=== PATIENT | female | born 1985 | race Caucasian/White ===

== ENCOUNTER 2017-04-11 19:37 | Emergency (ER) | payer BC ==
[2017-04-11] MEDS ORDERED: Ondansetron INJ* 2 MG/ML VIAL IV ONE (21:17)
[2017-04-11] MEDS ORDERED: Ketorolac INJ* 30 MG/ML 1 ML VIAL IV ONE (21:17)
[2017-04-11] MEDS ORDERED: HYDROmorphone INJ* 1 MG/ML CARPUJECT SYRINGE IV ONE (21:17)
[2017-04-11] MEDS ORDERED: NS 0.9% 1000 ML* 1,000 ML IV ONE (21:17)
[2017-04-11 21:47] LABS: ABS Basophils 0 10^3/ul (0-0.2); ABS Eosinophils 0.1 10^3/ul (0-0.6); ABS Lymphocytes 1.6 10^3/ul (1.0-4.8); ABS Monocytes 0.4 10^3/ul (0-0.8); ABS Neutrophils 8.5 10^3/ul (1.5-7.7); ABS Nucleated RBC 0 10^3/ul; Eosinophil % 0.6 % (0-6); Hematocrit 42 % (35-47); Hemoglobin 14.4 g/dl (12.0-16.0); Mean Corpuscular HGB Conc 35 g/dl (31-36); Mean Corpuscular Hemoglobin 30 pg (27-31); Mean Corpuscular Volume 87 fL (80-97); Mean Platelet Volume 8 um3 (7.4-10.4); Nucleated Red Blood Cells % 0; Platelet Count 258 10^3/ul (150-450); Red Blood Count 4.79 10^6/ul (4.0-5.4); Red Cell Distribution Width 13 % (10.5-15); White Blood Count 10.6 10^3/ul (3.5-10.8)
[2017-04-11 21:59] LABS: EGFR Non-African American 71.3 (>60)
[2017-04-11] MEDS ORDERED: Ondansetron ODT TAB* 4 MG SL PRN (23:26)
[2017-04-12 00:03] VITALS: BP 124/78
--- NOTE | 2017-04-12 00:12 | ED ---
Rakesh Hernandez Nikita, scribed for An Roach MD on 04/11/17 at 2329 . Progress - Progress Note Progress Note: Pt is feeling better. Pt will be seeing her urologist tomorrow for a procedure. Pt will be discharged home. Pt is agreeable with this plan. Take Imodium as needed. Pt will be given Reglan for nausea and vomiting. INSTRUCTED TO RETURN TO EMERGENCY DEPARTMENT FOR ANY NEW OR WORSENING SYMPTOMS. Course/Dx - Diagnoses Provider Diagnoses: Kidney stones The documentation as recorded by the Rakesh horta Nikita accurately reflects the service I personally performed and the decisions made by Doc storey Abdul, MD.
--- NOTE | 2017-04-12 11:05 | ED ---
Mono Hernandez Thomas, scribed for Chano Brasher MD on 04/11/17 at 2123 . Abdominal Pain/Female - HPI Summary HPI Summary: The patient is a 31 year old female presenting to the emergency room complaining of bilateral flank pain. The patient was seen at Dr. Huffman office and had an ultrasound yesterday that showed a large stone on the right. Dr. Watkins plans to put a stent in tomorrow. The ultrasound also showed a 4mm stone on the left. The patient thinks she is passing the 4mm stone on the left because the pain has gotten worse on the left and better on the right. The patient started vomiting today at around 17:00. - History of Current Complaint Chief Complaint: EDUrogenitalProblems Stated Complaint: KIDNEY STONE Time Seen by Provider: 04/11/17 21:10 Hx Obtained From: Patient Onset/Duration: Still Present Timing: Constant Severity Currently: Severe Pain Intensity: 7 Pain Scale Used: 0-10 Numeric Location: Flank - bilateral Radiates: No Alleviating Factor(s): Nothing Associated Signs and Symptoms: Positive: Vomiting Allergies/Adverse Reactions: Allergies Allergy/AdvReac Type Severity Reaction Status Date / Time No Known Allergies Allergy Verified 04/11/17 19:47 PMH/Surg Hx/FS Hx/Imm Hx Previously Healthy: No GI History: Reports: Hx Irritable Bowel - comes and goes- no meds History: Reports: Hx Kidney Infection, Hx Kidney Stones Musculoskeletal History: Reports: Hx Tendonitis - left foot Sensory History: Reports: Hx Contacts or Glasses - both - glasses day of surgery Denies: Hx Hearing Aid Opthamlomology History: Reports: Hx Contacts or Glasses - both - glasses day of surgery Psychiatric History: Reports: Hx Anxiety, Hx Depression - Cancer History Hx Chemotherapy: No - Surgical History Surgery Procedure, Year, and Place: left foot surgery when in high school. kidney stents on right side several times in past and LITHOTRIPSY. wisdom teeth removed Hx Anesthesia Reactions: No Infectious Disease History: No Infectious Disease History: Denies: Traveled Outside the [place] in Last 30 Days - Family History Known Family History: Positive: Other - Patient denies FHx when asked - Social History Alcohol Use: Occasionally Hx Substance Use: No Substance Use Type: Reports: None Hx Tobacco Use: No Smoking Status (MU): Never Smoked Tobacco Review of Systems Negative: Fever Positive: Vomiting Positive: flank pain - bilateral All Other Systems Reviewed And Are Negative: Yes Physical Exam - Summary Physical Exam Summary: Appearance: The patient is well-nourished in no acute distress and in no acute pain. Skin: The skin is warm and dry and skin color reflects adequate perfusion. HEENT: The head is normocephalic and atraumatic. The pupils are equal and reactive. The conjunctivae are clear and without drainage. Nares are patent and without drainage. Mouth reveals moist mucous membranes and the throat is without erythema and exudate. The external ears are intact. The ear canals are patent and without drainage. The tympanic membranes are intact. Neck: the neck is supple with full range of motion and non-tender. There are no carotid bruits. There is no neck vein distension. Respiratory: Chest is non-tender. Lungs are clear to auscultation and breath sounds are symmetrical and equal. Cardiovascular: Heart is regular rate and rhythm. There is no murmur or rub auscultated. There is no peripheral edema and pulses are symmetrical and equal. Abdomen: The abdomen is soft and non-tender. There are normal bowel sounds heard in all four quadrants and there is no organomegaly palpated. Back: She has left CVA tenderness. Musculoskeletal: Extremities are non-tender with full range of motion. There is good capillary refill. There is no peripheral edema or calf tenderness elicited. Neurological: Patient is alert and oriented to person, place and time. The patient has symmetrical motor strength in all four extremities. Cranial nerves are grossly intact. Deep tendon reflexes are symmetrical and equal in all four extremities. Psychiatric: The patient has an appropriate affect and does not exhibit any anxiety or depression. Triage Information Reviewed: Yes Vital Signs On Initial Exam: Initial Vitals Temp Pulse Resp BP Pulse Ox 97.8 F 83 16 126/78 100 04/11/17 19:42 04/11/17 19:42 04/11/17 19:42 04/11/17 19:42 04/11/17 19:42 Vital Signs Reviewed: Yes Diagnostics - Vital Signs Vital Signs Temp Pulse Resp BP Pulse Ox 04/11/17 19:42 97.8 F 83 16 126/78 100 - Laboratory Lab Results: Lab Results 04/11/17 04/11/17 04/11/17 Range/Units 21:30 21:30 21:30 WBC 10.6 (3.5-10.8) 10^3/ul RBC 4.79 (4.0-5.4) 10^6/ul Hgb 14.4 (12.0-16.0) g/dl Hct 42 (35-47) % MCV 87 (80-97) fL MCH 30 (27-31) pg MCHC 35 (31-36) g/dl RDW 13 (10.5-15) % Plt Count 258 (150-450) 10^3/ul MPV 8 (7.4-10.4) um3 Neut % (Auto) 80.2 (38-83) % Lymph % (Auto) 15.0 L (25-47) % [place] % (Auto) 4.0 (1-9) % Eos % (Auto) 0.6 (0-6) % Baso % (Auto) 0.2 (0-2) % Absolute Neuts (auto) 8.5 H (1.5-7.7) 10^3/ul Absolute Lymphs (auto) 1.6 (1.0-4.8) 10^3/ul Absolute Monos (auto) 0.4 (0-0.8) 10^3/ul Absolute Eos (auto) 0.1 (0-0.6) 10^3/ul Absolute Basos (auto) 0 (0-0.2) 10^3/ul Absolute Nucleated RBC 0 10^3/ul Nucleated RBC % 0 Sodium 138 (133-145) mmol/L Potassium 3.5 (3.5-5.0) mmol/L Chloride 103 (101-111) mmol/L Carbon Dioxide 26 (22-32) mmol/L Anion Gap 9 (2-11) mmol/L BUN 13 (6-24) mg/dL Creatinine 0.93 (0.51-0.95) mg/dL Est GFR ( Amer) 91.7 (>60) Est GFR (Non-Af Amer) 71.3 (>60) BUN/Creatinine Ratio 14.0 (8-20) Glucose 92 (70-100) mg/dL Lactic Acid 1.0 (0.5-2.0) mmol/L Calcium 9.9 (8.6-10.3) mg/dL Total Bilirubin 0.40 (0.2-1.0) mg/dL AST 20 (13-39) U/L ALT 22 (7-52) U/L Alkaline Phosphatase 54 (34-104) U/L C-Reactive Protein 23.20 H (< 5.00) mg/L Total Protein 7.7 (6.4-8.9) g/dL Albumin 4.0 (3.2-5.2) g/dL Globulin 3.7 (2-4) g/dL Albumin/Globulin Ratio 1.1 (1-3) Lipase 29 (11.0-82.0) U/L Beta HCG, Quant < 0.60 mIU/mL Result Diagrams: 04/11/17 21:30 04/11/17 21:30 Lab Statement: Any lab studies that have been ordered have been reviewed, and results considered in the medical decision making process. Abdominal Pain Fem Course/Dx - Course Course Of Treatment: Ms. Larsen has a known large stone on the right which Dr. Watkins is planning on stenting tomorrow. She also has a known 4 mm stone on the left. She started with increased pain on the left this afternoon and vomited a couple times. She is on keflex for a UTI. She denies fevers. Here she is nontoxic in appearance and afebrile. She is getting IV NS and pain medications and will go home if she improves to F/U tomorrow with Dr. Watkins or be admitted if her pain can't be controlled. - Diagnoses Provider Diagnoses: Kidney stones Discharge - Discharge Plan Condition: Stable Disposition: HOME Patient Education Materials: Kidney Stones (ED) Referrals: Rodger Watkins MD [Medical Doctor] - 1 Day Additional Instructions: Follow up with Dr. Watkins (urologist) tomorrow. The documentation as recorded by the Mono horta Thomas accurately reflects the service I personally performed and the decisions made by , Chano Brasher MD.
== END 2017-04-12 00:02 | disposition home or self-care (01) ==
LOC: ED 19:37
DX: N20.0 Calculus of kidney (principal); R11.10 Vomiting, unspecified; R10.84 Generalized abdominal pain; Z87.19 Personal history of other diseases of the digestive system
CPT/HCPCS: 36415; 80053; 83605; 83690; 84702; 85025; 86140; 87040; 96374; 96375; 99283; J1170; J1885; J2405

== ENCOUNTER 2017-04-12 14:00 | Day surgery (SDC) | payer BC ==
--- NOTE | 2017-04-12 10:15 | HP ---
HISTORY AND PHYSICAL: DATE OF PLANNED ADMISSION AND SURGERY: 04/12/17 HISTORY OF PRESENT ILLNESS: Ms. Larsen is a 31-year-old white female who is admitted with bilateral renal calculi for cystoscopy, bilateral ureteral stent placement, and possible bilateral ureteroscopies. Ms. Larsen is a known stone former whom I have been following for several years because of bilateral renal calculi. She had required ureteroscopy in the past. She has been maintained on potassium citrate for control of her stone disease. She presented about 3 to 4 weeks ago with symptoms of left flank pain and was noted on renal ultrasound to have bilateral renal calculi. She presented to my office 2 days ago with intermittent episodes of left flank pain. She had a renal ultrasound in the office, which showed a 4- to 5-mm calculus in the proximal left ureter and a 1-cm calculus in the right renal pelvis. A KUB confirmed the presence of a 1-cm calculus in the right renal pelvis and the calculus on the left side was not visualized on the KUB. The patient was scheduled to have a placement of a right ureteral stent. She presented to the emergency room last night with symptoms of left renal colic. She was managed conservatively with pain medications and sent home. She had a urine culture 3 days ago, which grew klebsiella, sensitive to Keflex, and she has been maintained on Keflex for the last 3 days with control of her cystitis symptoms. PAST MEDICAL HISTORY AND SYSTEM REVIEW: She is otherwise in very good health. MEDICATIONS: She is on Cymbalta. She is on oral contraceptives. ALLERGIES: She denies any allergies to medications. PHYSICAL EXAMINATION GENERAL: Pleasant, healthy-looking white female, who is in moderate discomfort because of flank pain. LUNGS: Clear. HEART: Regular and rhythmic. No murmurs. ABDOMEN: Soft. No masses, no tenderness. There is slight bilateral flank tenderness. The rest of the abdominal exam is normal. IMPRESSION: 1. A 1-cm calculus at the right ureteropelvic junction causing intermittent episodes of right flank pain. 2. A 4- to 5-mm calculus in the proximal left ureter with intermittent episodes of left renal colic. PLAN: For cystoscopy and bilateral ureteral stent placement. If either of the calculi is noted to have migrated in the lower half of the ureter, then ureteroscopy will be performed. The patient will require shock wave lithotripsy of the right renal calculus at a later date. [id number]/[facility] #: [id number] DOMINIK
[~2017-04-12 14:00] MED LIST: Buffered Lidocaine 0.9% SYRIN* 5 ML/SYR SYRINGE INTRADERM ONE; Buffered Lidocaine 0.9% SYRIN* 5 ML/SYR SYRINGE ONE; Dexamethasone IV* 4 MG/ML 1 ML (4 MG) IV SLOW PU ONE; Dexamethasone IV* 4 MG/ML 1 ML (4 MG) ONE; Famotidine IV* 10 MG/ML 2 ML (20 mg) IV ONE; Famotidine IV* 10 MG/ML 2 ML (20 mg) ONE; Lidocaine 2% PF * 5 ML VIAL ONE; Propofol* 10 MG/ML 20 ML BTL IV PUSH ONE; cefTRIAXone(*) 1 GM ADVAN/BAG ONE
[2017-04-12] MEDS ORDERED: Midazolam* 1 MG/ML 2 ML VIAL (2 MG) ONE (14:09)
[2017-04-12] MEDS ORDERED: fentaNYL* 50 MCG/ML 2 ML VIAL (100 MCG VIAL) ONE (14:09)
[2017-04-12] MEDS ORDERED: Iohexol 180 (CONTRAST) 10 ML SDV IV ONE (15:51)
[2017-04-12] MEDS ORDERED: Scopolamine 1.5 mg* PATCH TRANSDERM PRN (17:07)
[2017-04-12] MEDS ORDERED: Naloxone* 0.4 MG/ML 1 ML VIAL IV PRN (17:07)
[2017-04-12] MEDS ORDERED: Ondansetron INJ* 2 MG/ML VIAL IV PRN (17:07)
[2017-04-12] MEDS ORDERED: HYDROmorphone INJ* 1 MG/ML CARPUJECT SYRINGE IV PRN (17:07)
[2017-04-12] MEDS ORDERED: oxyCODONE TAB* 5 MG TAB PO PRN (17:07)
[2017-04-12] MEDS ORDERED: fentaNYL* 50 MCG/ML 2 ML VIAL (100 MCG VIAL) IV PRN (17:07)
--- NOTE | 2017-04-12 17:19 | RAD ---
CPT II Codes: 6045F INDICATION: Right ureteral stent placement. 9 seconds of fluoroscopy time was used. Fluoroscopic services provided for referring physician. There is retrograde PolyGram of the right kidney with dilated right renal pelvis. This placement of a right ureteral stent. IMPRESSION: Fluoroscopic services provided for referring physician for right ureteral stent placement.
[2017-04-12 17:44] VITALS: BP 125/81
[2017-04-12] MEDS ORDERED: Ondansetron INJ* 2 MG/ML VIAL ONE (17:45)
[2017-04-12] MEDS ORDERED: Scopolamine 1.5 mg* PATCH ONE (17:45)
--- NOTE | 2017-04-13 00:41 | OP ---
CC: Margret Eric NP * DATE OF OPERATION: 04/12/17 - [facility] DATE OF : 89 SURGEON: Rodger Watkins MD ANESTHESIOLOGIST: Reyna Dawn MD ANESTHESIA: General. PRE-OP DIAGNOSES: 1. Right renal calculus (1 cm). 2. Left ureteral calculus (4 mm). POST-OP DIAGNOSES: 1. Right renal calculus. 2. Distal left ureteral calculus. OPERATIVE PROCEDURE: 1. Cystoscopy. 2. Right retrograde pyelography and placement of a right ureteral stent (6- Malawian). 3. Extraction of calculus of distal left ureter. INDICATION FOR PROCEDURE: Ms. Larsen is a 31-year-old white female who is a known stone former and who has been having recurrent episodes of right and left flank pain. Workup 2 days ago showed a 1 cm calculus in the right renal pelvis and a 4 mm calculus in the proximal left ureter. She had increasing symptoms of left renal colic yesterday and went to the emergency room where she was treated with pain medication and sent home. The patient is here for the above procedures. PATHOLOGY AT CYSTOSCOPY: The bladder mucosa looked normal. The right ureteral orifice looked normal. A ureteral calculus was noted at the level of the left ureteral orifice. At fluoroscopy, a 1 cm radiopaque calculus was noted in the area of the right renal pelvis. Upon right retrograde pyelography, there was mild right hydronephrosis. DESCRIPTION OF PROCEDURE: After successful general anesthesia, the patient was placed in the lithotomy position and was prepped and draped for cystoscopy. Cystoscopy was performed. The bladder was inspected and the above findings were noted. Using fluoroscopy as guidance, a flexible tip guidewire was introduced into the right orifice and positioned in the area of the renal pelvis. An open-ended catheter was then fed on top of the guidewire. Retrograde pyelography was performed demonstrating the above pathology. A size 6-Malawian stent was then placed with the proximal end coiling in the renal pelvis and the distal end coiling inside the bladder. There was good drainage of contrast from the right kidney and no extravasation. Attention was then directed to the left orifice. The calculus was noted at the level of the orifice. Using the stone grasping forceps, the stone was grasped and was gently extracted without crushing it and was sent for stone analysis. There was some edema at the orifice. The orifice was observed and there was good efflux from the left kidney. It was decided not to instrument the orifice further and no retrograde pyelography done, and no stent was placed. The patient tolerated the procedure well and left the operating room in good condition. The plan is to bring the patient back in at a later date for shockwave lithotripsy of the right renal calculus and for stent removal. [id number]/[facility] #: [id number] MTDD
[2017-04-15] MEDS ORDERED: Scopolamine PATCH Remove* 1 NOTE MISC PATCH OFF ONE (17:08)
== END 2017-04-12 18:19 | disposition home or self-care (01) ==
LOC: OR 14:00
PROVIDERS: ATTEND Urology
DX: N20.1 Calculus of ureter (principal); N20.0 Calculus of kidney; Z87.442 Personal history of urinary calculi; F41.8 Other specified anxiety disorders; N39.0 Urinary tract infection, site not specified; K58.9 Irritable bowel syndrome, unspecified
CPT/HCPCS: 74420; 81025; 82365; 88300; A9270-GY; C1876; J0696; J1100; J2250; J2405; J2704; J3010

== ENCOUNTER → 2017-04-23 06:15 | Day surgery (SDC) | payer BC ==
[~2017-04-23 06:15] MED LIST changes: +Iohexol 180 (CONTRAST) 10 ML SDV IV ONE; -Lidocaine 2% PF * 5 ML VIAL ONE; +Metoclopramide IV* 5 MG/ML 2 ML VIAL ONE; +Midazolam* 1 MG/ML 2 ML VIAL (2 MG) ONE; +Naloxone* 0.4 MG/ML 1 ML VIAL IV PRN; +Ondansetron INJ* 2 MG/ML VIAL ONE; -Propofol* 10 MG/ML 20 ML BTL IV PUSH ONE; +Scopolamine 1.5 mg* PATCH ONE; +Scopolamine 1.5 mg* PATCH TRANSDERM SCH; -cefTRIAXone(*) 1 GM ADVAN/BAG ONE; +cefTRIAXone(*) 2 GM ADDV.VIAL IVPB ONE; +fentaNYL* 50 MCG/ML 2 ML VIAL (100 MCG VIAL) ONE
[2017-04-23 06:57] VITALS: BP 124/78
[2017-04-23 07:46] LABS: Urine Appearance Cloudy; Urine Blood 3+ (Negative); Urine Color Amber; Urine Ketones Negative (Negative); Urine Protein 2+(100 mg/dL) (Negative); Urine Specific Gravity 1.019 (1.010-1.030); Urine Urobilinogen Negative (Negative)
--- NOTE | 2017-04-23 11:58 | CONS ---
CONSULTATION REPORT: DATE OF CONSULT: 04/23/17 HISTORY OF PRESENT ILLNESS: Ms. Larsen is a 31-year-old white female, who presented 2 weeks ago with symptoms of right renal colic and was noted to have a 1- cm calculus at the right ureteropelvic junction and a 4- to 5-mm calculus in the left ureter. She had a urine culture on 04/10/17 showing klebsiella, sensitive to cephalosporin. She was placed preoperatively on Keflex and was taken to the operating room on 04/12/17 and underwent placement of a right ureteral stent and extraction of distal left ureteral calculus. Follow up urine culture on 04/17/2017 showed no growth. The patient had finished her antibiotic course. She was admitted today for shock wave lithotripsy of the right renal calculus. For the last 24 hours, she has not been feeling fine, feeling nauseated, and having right flank pain. She did not have any fever or chills. PHYSICAL EXAM: On examination this morning in the operative unit, she looked pale and was nauseated. Her vital signs showed tachycardia but she was afebrile. She had right flank tenderness. LABORATORY DATA: Urinalysis and culture were sent. The urinalysis was positive for blood, esterase, and nitrite. Urine culture was sent. IMPRESSION: With the above findings suggestive of recurrence of her urinary tract infection, we cannot proceed with the planned shock wave lithotripsy because of fear of sepsis. PLAN: 1. Cancel the planned procedure. 2. 2 g of Rocephin IV is given in the preoperative area. 3. Discharge home on Cipro 500 mg twice a day. 4. We will await the result of the culture. If the culture is negative, then will proceed with the shock wave lithotripsy in 2 days. If it is positive, we will have to wait for a full week of antibiotics. 5. Shock wave lithotripsy would not be available for another 2 weeks and the patient has been very uncomfortable from the stent. In that case, we will proceed with ureteroscopy, pyeloscopy, and laser lithotripsy. 6. The above was discussed with Mattie and her mom. All their questions were answered. [id number]/[facility] #: [id number] [facility]NING HOSPITALEllis
== END | disposition home or self-care (01) ==
LOC: OR 06:15
PROVIDERS: ATTEND Urology
DX: N20.0 Calculus of kidney (principal); N39.0 Urinary tract infection, site not specified; R31.29 Other microscopic hematuria; Z53.09 Procedure and treatment not carried out because of other contraindication; R00.0 Tachycardia, unspecified
CPT/HCPCS: 81003; 81015; 81025; 87077; 87086; 87186; A9270-GY; J0696; J1100; J2250; J2405; J2765; J3010

== ENCOUNTER 2017-05-02 07:20 | Day surgery (SDC) | payer BC ==
--- NOTE | 2017-04-25 01:24 | HP ---
HISTORY AND PHYSICAL: DATE OF PLANNED ADMISSION AND SURGERY: 05/02/17 HISTORY OF PRESENT ILLNESS: Ms. Larsen is a 31-year-old white female who is admitted with a right renal calculus for cystoscopy, right ureteroscopy, laser lithotripsy, and right ureteral stent exchange. Ms. Larsen is a known stone former whom I have been following for several years because of bilateral renal calculi. She had required ureteroscopies in the past. She has been maintained on potassium citrate for control of her stone disease. She presented about 6 weeks ago with symptoms suggestive of left renal calculus. She was noted on renal ultrasound to have a 1 cm calculus in the right renal pelvis and a 3-mm to 4-mm calculus in the proximal left ureter. She was observed to allow the passage of the Lt ureteral calculus. On follow up, her Lt flank pain became more bothersome. Her urine culture at that time was positive for Klebsiella, sensitive to Keflex. KUB showed a 1 cm radio-opaque calculus in the Rt renal pelvis. She was started on Keflex, and 3 days later on 04/12/17, she was taken to the operating room where she had placement of a right ureteral stent and extraction of a distal left ureteral calculus. She was kept postoperatively on the Keflex and she did fine. Follow up urine culture showed no growth. She was admitted on 04/22/17 for shock wave lithotripsy of the right renal calculus. She was noted in the PACU to be pale and slightly tachycardic and had right CVA tenderness. She was afebrile. Her urinalysis was positive for infection. The procedure was canceled. The patient was given 2 g of IV Rocephin and she was discharged home on Cipro. The urine culture grew Klebsiella that had the same sensitivity as the previous culture and it was sensitive to Cipro. She has been doing much better. The patient is much improved and her symptoms are resolved. Considering shock wave lithotripsy will not be available for another 2 to 3 weeks, and because of concern that the Rt renal calculus might be infected, the plan is for Rt ureteroscopy and laser litho. PAST MEDICAL HISTORY AND SYSTEM REVIEW: She is in very good health. MEDICATIONS: She is on Cymbalta and on oral contraceptives. ALLERGIES: She denies any allergies to medications. She had GI symptoms when she was on oral Keflex. PHYSICAL EXAMINATION GENERAL: Pleasant and healthy-looking white female. VITAL SIGNS: Blood pressure 120/80. LUNGS: Normal. HEART: Normal. ABDOMEN: She has minimal right CVA tenderness. Abdominal exam is normal. IMPRESSION: 1. Recent urinary tract infection, treated appropriately with Cipro with her last dose the evening before her admission. 2. A 1-cm calculus in the right renal pelvis, status post placement of right ureteral stent. PLAN: Plan is for cystoscopy, right ureteroscopy, laser lithotripsy, and right ureteral stent exchange. I discussed the above plans with Mattie and her mother, and all their questions were answered. [id number]/[facility] #: [id number] MTDD
[~2017-05-02 07:20] MED LIST changes: -Buffered Lidocaine 0.9% SYRIN* 5 ML/SYR SYRINGE ONE; -Dexamethasone IV* 4 MG/ML 1 ML (4 MG) IV SLOW PU ONE; -Dexamethasone IV* 4 MG/ML 1 ML (4 MG) ONE; -Famotidine IV* 10 MG/ML 2 ML (20 mg) IV ONE; -Famotidine IV* 10 MG/ML 2 ML (20 mg) ONE; -Iohexol 180 (CONTRAST) 10 ML SDV IV ONE; -Metoclopramide IV* 5 MG/ML 2 ML VIAL ONE; -Midazolam* 1 MG/ML 2 ML VIAL (2 MG) ONE; -Naloxone* 0.4 MG/ML 1 ML VIAL IV PRN; -Ondansetron INJ* 2 MG/ML VIAL ONE; -Scopolamine 1.5 mg* PATCH ONE; -Scopolamine 1.5 mg* PATCH TRANSDERM SCH; -cefTRIAXone(*) 2 GM ADDV.VIAL IVPB ONE; -fentaNYL* 50 MCG/ML 2 ML VIAL (100 MCG VIAL) ONE
[2017-05-02] MEDS ORDERED: Buffered Lidocaine 0.9% SYRIN* 5 ML/SYR SYRINGE ONE (07:24)
[2017-05-02] MEDS ORDERED: cefTRIAXone(*) 2 GM ADDV.VIAL IVPB ONE (07:24)
[2017-05-02] MEDS ORDERED: Iohexol 180 (CONTRAST) 10 ML SDV IV ONE (08:48)
[2017-05-02] MEDS ORDERED: Scopolamine 1.5 mg* PATCH ONE (09:00)
[2017-05-02] MEDS ORDERED: Propofol* 10 MG/ML 20 ML BTL IV PUSH ONE (09:14)
[2017-05-02] MEDS ORDERED: Ondansetron INJ* 2 MG/ML VIAL ONE (09:14)
[2017-05-02] MEDS ORDERED: fentaNYL* 50 MCG/ML 2 ML VIAL (100 MCG VIAL) ONE ×2 (09:14→11:19)
[2017-05-02] MEDS ORDERED: Dexamethasone IV* 4 MG/ML 1 ML (4 MG) ONE (09:14)
[2017-05-02] MEDS ORDERED: Lidocaine 2% PF * 5 ML VIAL ONE (09:15)
[2017-05-02] MEDS ORDERED: Ketorolac INJ* 30 MG/ML 1 ML VIAL IV PRN (09:35)
[2017-05-02] MEDS ORDERED: Naloxone* 0.4 MG/ML 1 ML VIAL IV PRN (09:35)
[2017-05-02] MEDS ORDERED: oxyCODONE/Acetamin 5/325 MG* TAB PO PRN (09:35)
[2017-05-02] MEDS ORDERED: DiMENhydriNATE IV* 50 MG/ML VIAL IV PUSH PRN (09:35)
[2017-05-02] MEDS ORDERED: Ketorolac INJ* 30 MG/ML 1 ML VIAL ONE (11:19)
[2017-05-02] MEDS ORDERED: DiMENhydriNATE IV* 50 MG/ML VIAL ONE (11:19)
[2017-05-02] MEDS: fentaNYL* 50 MCG/ML 2 ML VIAL (100 MCG VIAL) IV PRN ×2 (11:20→11:50)
--- NOTE | 2017-05-02 11:34 | RAD ---
INDICATION: Urolithiasis. RIGHT retrograde pyelogram, ureteroscopy, stent exchange COMPARISON: September 05, 2015 ultrasound. April 12, 2017 retrograde pyelogram. TECHNIQUE: 34 seconds fluoroscopy. FINDINGS: RIGHT retrograde pyelogram demonstrates mild calyceal blunting. RIGHT ureteral stent placed. IMPRESSION: Procedural fluoroscopy. CPT II Codes: 6045F
[2017-05-02] MEDS ORDERED: Acetaminophen ADULT LIQ* 650 MG/20.3 ML UDC ONE (12:15)
[2017-05-02 13:06] VITALS: BP 115/81
--- NOTE | 2017-05-02 13:33 | RAD ---
Indication: Renal calculus. RIGHT ureteral stent. Comparison: April 11, 2017 Technique: Supine view of the abdomen. REPORT AND IMPRESSION: Unremarkable bowel gas pattern. RIGHT ureteral stent in place. While partially obscured by the 12th rib the previously noted RIGHT upper pole stone appears fragmented compared with the April 11, 2017 exam with the fragments extending over a region measuring up to 1.3 cm. No stone fragments visualized along the course of the RIGHT ureteral stent.
--- NOTE | 2017-05-03 13:24 | OP ---
CC: Margret Eric NP * DATE OF OPERATION: 05/02/17 - [facility] DATE OF : 89 SURGEON: Rodger Watkins MD PRE-OP DIAGNOSES: 1. Right renal calculus (1 cm). 2. Status post placement right ureteral stent. POST-OP DIAGNOSES: 1. Right renal calculus (1 cm). 2. Status post placement right ureteral stent. OPERATIVE PROCEDURE: 1. Cystoscopy. 2. Right ureteroscopy and pyeloscopy. 3. Laser lithotripsy of right renal calculus. 4. Right retrograde pyelography and right ureteral stent exchange (6-Tajik). INDICATION FOR PROCEDURE: Ms. Larsen is a 31-year-old white female who presented about two weeks ago with symptoms of renal colic and was noted to have a 1-cm calculus at the right ureteropelvic junction. She had urgent placement of right ureteral stent. She was scheduled to undergo shockwave lithotripsy a week later; however, she was noted to have recurrent urinary tract infection and the procedure was canceled and the patient was started on oral antibiotics with resolution of her infection. Because of that history and the slight concern that the stone might be infected , it was decided not to perform a shock-wave lithotripsy, but to bring her in for the above procedure. PATHOLOGY AT FLUOROSCOPY: The right ureteral stent was noted in good position. The right renal calculus was noted in a mid pole calyx of the right kidney. Upon right ureteroscopy, the ureter looked normal. No calculus was seen in the renal pelvis. A grayish calculus measuring about 1 cm was noted in a mid pole calyx. DESCRIPTION OF PROCEDURE: After successful general anesthesia, the patient was placed in the lithotomy position and was prepped and draped for a cystoscopy. Cystoscopy was performed. The right ureteral stent was removed over a guidewire. A 6.5 semirigid ureteroscope was then introduced into the right ureter. The scope was passed without difficulty all the way into the area of the renal pelvis. No calculus was identified in the pelvis. The ureteroscope was then removed. A 10-12 Tajik access sheath was fed on top of the guidewire and positioned in the proximal right ureter. The guidewire was removed, keeping the acces sheath in place. A flexible ureteroscope was then introduced through the access sheath and passed without difficulty inside the renal pelvis. The calices were inspected and the calculus was identified in a mid pole calyx. Using the tipless basket, the stone was basketed and brought down into a dependent position in the renal pelvis. A size 200 micron laser was then introduced through the port of the ureteroscope. The stone was then broken into multiple pieces. The stone then migrated back into the mid pole calyx and it was followed there and additional lasering was performed. The stone fragmented into multiple pieces. The fragments were felt to be too small to be extracted and it was decided to leave them in the mid pole calyx and in the renal pelvis. The ureteroscope was then removed. The access sheath was then removed over a guidewire. Retrograde pyelography was performed showing no evidence of any extravasation. A size 7- Tajik stent was then placed. The patient tolerated the procedure well and left the operating room in good condition. The plan is to leave the stent in about two weeks. It will be removed in the office, and I expect the stone fragments to drop spontaneously. [id number]/[facility] #: [id number] DOMINIK
== END 2017-05-02 12:40 | disposition home or self-care (01) ==
LOC: OR 07:20
PROVIDERS: ATTEND Urology
DX: N20.0 Calculus of kidney (principal); Z87.440 Personal history of urinary (tract) infections; F41.8 Other specified anxiety disorders; K58.9 Irritable bowel syndrome, unspecified
CPT/HCPCS: 74018; 74420; 81025; 82365; 88300; A9270-GY; C1876; J0696; J1100; J1240; J1885; J2405; J2704; J3010

== ENCOUNTER 2017-11-09 18:15 | Emergency (ER) | payer BC ==
[2017-11-09 18:55] VITALS: BP 109/75
[2017-11-09] MEDS ORDERED: Ondansetron ODT TAB* 4 MG PO ONE (19:01)
--- NOTE | 2017-11-09 19:27 | UC ---
UC General HPI - HPI Summary HPI Summary: 32 yo female c/o progressive nausea / vomiting approx last 4 days. Today started diarrhea brown green. Denies urinary symptoms except for less urine urine quantity. No fever / chills. No abd pain, no rash. No sob / cp / palpitations. 9 wks . - History of Current Complaint Chief Complaint: UCGI Stated Complaint: VOMITING,DIARRHEA,PREG Time Seen by Provider: 11/09/17 18:52 Hx Obtained From: Patient Hx Last Menstrual Period: 09/09/17 Pain Intensity: 3 - Allergy/Home Medications Allergies/Adverse Reactions: Allergies Allergy/AdvReac Type Severity Reaction Status Date / Time Sulfa (Sulfonamide Allergy Unknown Verified 11/09/17 18:56 Antibiotics) Reaction Details PMH/Surg Hx/FS Hx/Imm Hx Previously Healthy: Yes - Surgical History Surgical History: Yes Surgery Procedure, Year, and Place: left foot surgery when in high school. kidney stents on right side several times in past and LITHOTRIPSY. wisdom teeth removed - Family History Known Family History: Positive: None, Other - Patient denies FHx when asked - Social History Alcohol Use: None Substance Use Type: None Smoking Status (MU): Never Smoked Tobacco Review of Systems Constitutional: Fatigue Skin: Negative Eyes: Negative ENT: Negative Respiratory: Negative Cardiovascular: Negative Gastrointestinal: Other - see hpi Genitourinary: Other - see hpi Motor: Negative Neurovascular: Negative Musculoskeletal: Negative Neurological: Negative Psychological: Negative Is Patient Immunocompromised?: No All Other Systems Reviewed And Are Negative: Yes Physical Exam Triage Information Reviewed: Yes Appearance: Well-Nourished - looks tired, pale. NAD. Vital Signs: Initial Vital Signs Temp 98.3 F 11/09/17 18:48 Pulse 102 11/09/17 18:48 Resp 16 11/09/17 18:48 BP 109/75 11/09/17 18:48 Pulse Ox 100 11/09/17 18:48 Vital Signs Reviewed: Yes Eye Exam: Normal - grossly normal ENT Exam: Other - MM a little dry. Oroph o/w normal. Neck exam: Normal Neck: Positive: Supple Respiratory Exam: Normal Respiratory: Positive: Chest non-tender, Lungs clear, Normal breath sounds, No respiratory distress Cardiovascular Exam: Other - HR 110's, correlates with L radial pulse Abdominal Exam: Other - hyperactive bs Abdomen Description: Positive: Nontender Musculoskeletal Exam: Normal - gait slow, steady. Moves x 4 ext's Neurological Exam: Normal - grossly nonfocal Psychological Exam: Normal - conversing easily and appropriately Skin Exam: Normal - nondiaphoretic. no visible or reported rash. Course/Dx - Course Course Of Treatment: Urine dip noted, + leuk no ketones. + ucg. Actively retching upon arrival, as such one ondansetron 4mg sl (d/w pt). Recommend ED eval / tx. Ms. Gatica and carefully considered and agree. Declined EMS. Questions as posed answered to the best of my ability. D/w Dr Reyes, ED at time of pt departure. - Differential Dx - Multi-Symptom Provider Diagnoses: Volume dehydration. Hyperemesis gravidum. Discharge - Sign-Out/Discharge Documenting (check all that apply): Patient Departure - Discharge Plan Condition: Fair Disposition: HOME-RECOMMEND TO ED Patient Education Materials: Hyperemesis Gravidarum (ED) Referrals: Kiki Chavez NP [Primary Care Provider] - Pritesh Black MD [Medical Doctor] - Additional Instructions: Go directly to the Emergency Department. Call 911 for problems en route. - Billing Disposition and Condition Condition: FAIR Disposition: Home-Recommend to ED
== END 2017-11-09 19:30 | disposition home health service (06) ==
LOC: UCEAST 18:15
DX: O21.0 Mild hyperemesis gravidarum (principal); E86.9 Volume depletion, unspecified; Z3A.09 9 weeks gestation of pregnancy; Z88.2 Allergy status to sulfonamides
CPT/HCPCS: 81003; 84702; 87086; 99202; A9270-GY; G0463

== ENCOUNTER 2017-11-09 20:01 | Emergency (ER) | payer BC ==
[2017-11-09 21:38] LABS: ABS Basophils 0 10^3/ul (0-0.2); ABS Eosinophils 0.2 10^3/ul (0-0.6); ABS Lymphocytes 2.6 10^3/ul (1.0-4.8); ABS Monocytes 0.7 10^3/ul (0-0.8); ABS Neutrophils 7.1 10^3/ul (1.5-7.7); ABS Nucleated RBC 0 10^3/ul; Eosinophil % 1.5 % (0-6); Hematocrit 42 % (35-47); Hemoglobin 14.5 g/dl (12.0-16.0); Lymphocyte % 24.6 % (25-47); Mean Corpuscular HGB Conc 35 g/dl (31-36); Mean Corpuscular Hemoglobin 30 pg (27-31); Mean Corpuscular Volume 85 fL (80-97); Mean Platelet Volume 7.9 um3 (7.4-10.4); Nucleated Red Blood Cells % 0.1; Platelet Count 270 10^3/ul (150-450); Red Cell Distribution Width 13 % (10.5-15); White Blood Count 10.6 10^3/ul (3.5-10.8)
[2017-11-09 21:55] LABS: EGFR Non-African American 79.6 (>60)
[2017-11-09] MEDS ORDERED: NS 0.9% 1000 ML* 1,000 ML IV ONE (22:37)
[2017-11-09] MEDS ORDERED: Metoclopramide IV* 5 MG/ML 2 ML VIAL IV SLOW PU ONE (22:37)
[2017-11-09 22:56] LABS: Urine Appearance Cloudy; Urine Blood 1+ (Negative); Urine Color Yellow; Urine Ketones 1+ (Negative); Urine Protein Negative (Negative); Urine Red Blood Cell 2+(6-10/hpf) (Absent); Urine Specific Gravity 1.023 (1.010-1.030); Urine Urobilinogen Negative (Negative); Urine White Blood Cell 2+(11-20/hpf) (Absent)
[2017-11-09] MEDS ORDERED: Nitrofurantoin Macrocrystals* 100 MG CAP PO ONE (23:05)
--- NOTE | 2017-11-10 00:11 | ED ---
GI/ HPI - HPI Summary HPI Summary: 32-year-old female presents with nausea vomiting diarrhea for the past couple days. She states she is 9 weeks . Last menstrual period was in August. Denies any abdominal pain. No vaginal discharge or bleeding. No pain with urination. no urgency or frequency. She takes she states she took some medication for morning sickness without relief. Patient has had morning sickness but did not have diarrhea in the past with such. No one else is sick. Denying eating anything different. No fevers. No constipation. - History of Current Complaint Chief Complaint: EDAbdPain Time Seen by Provider: 11/09/17 22:24 Stated Complaint: NAUSEA/VOMITING/DIARRHEA/8 WKS PREG Hx Last Menstrual Period: 09/09/17 Pain Intensity: 0 - Allergy/Home Medications Allergies/Adverse Reactions: Allergies Allergy/AdvReac Type Severity Reaction Status Date / Time Sulfa (Sulfonamide Allergy Unknown Verified 11/09/17 20:08 Antibiotics) Reaction Details PMH/Surg Hx/FS Hx/Imm Hx Endocrine/Hematology History: Denies: Hx Anticoagulant Therapy Cardiovascular History: Denies: Hx Myocardial Infarction GI History: Reports: Hx Irritable Bowel - comes and goes- no meds History: Reports: Hx Kidney Infection, Hx Kidney Stones Musculoskeletal History: Reports: Hx Tendonitis - left foot Sensory History: Reports: Hx Contacts or Glasses - both - glasses day of surgery Denies: Hx Hearing Aid Opthamlomology History: Reports: Hx Contacts or Glasses - both - glasses day of surgery Psychiatric History: Reports: Hx Anxiety, Hx Depression - Cancer History Hx Chemotherapy: No - Surgical History Surgery Procedure, Year, and Place: left foot surgery when in high school. kidney stents on right side several times in past and LITHOTRIPSY. wisdom teeth removed Hx Anesthesia Reactions: No Infectious Disease History: No Infectious Disease History: Denies: Traveled Outside the [place] in Last 30 Days - Family History Known Family History: Positive: None, Other - Patient denies FHx when asked - Social History Alcohol Use: None Hx Substance Use: No Substance Use Type: Reports: None Hx Tobacco Use: No Smoking Status (MU): Never Smoked Tobacco Review of Systems Negative: Fever Negative: Chest Pain Negative: Shortness Of Breath Positive: Vomiting, Diarrhea, Nausea. Negative: Abdominal Pain All Other Systems Reviewed And Are Negative: Yes Physical Exam Triage Information Reviewed: Yes Vital Signs On Initial Exam: Initial Vitals Temp Pulse Resp BP Pulse Ox 98.0 F 91 16 117/70 99 11/09/17 20:05 11/09/17 20:05 11/09/17 20:05 11/09/17 20:05 11/09/17 20:05 Vital Signs Reviewed: Yes Appearance: Positive: Well-Appearing Skin: Positive: Warm, Dry Head/Face: Positive: Normal Head/Face Inspection Eyes: Positive: Normal, Conjunctiva Clear ENT: Positive: Pharynx normal Respiratory/Lung Sounds: Positive: Clear to Auscultation, Breath Sounds Present Cardiovascular: Positive: Normal, RRR Abdomen Description: Positive: Nontender, Soft Bowel Sounds: Positive: Present Musculoskeletal: Positive: Normal Neurological: Positive: Normal Psychiatric: Positive: Normal Diagnostics - Vital Signs Vital Signs Temp Pulse Resp BP Pulse Ox 11/09/17 23:38 98.8 F 14 11/09/17 20:05 98.0 F 91 16 117/70 99 - Laboratory Lab Results: Lab Results 11/09/17 11/09/17 11/09/17 Range/Units 21:29 21:29 22:43 WBC 10.6 (3.5-10.8) 10^3/ul RBC 4.90 (4.00-5.40) 10^6/ul Hgb 14.5 (12.0-16.0) g/dl Hct 42 (35-47) % MCV 85 (80-97) fL MCH 30 (27-31) pg MCHC 35 (31-36) g/dl RDW 13 (10.5-15) % Plt Count 270 (150-450) 10^3/ul MPV 7.9 (7.4-10.4) um3 Neut % (Auto) 66.9 (38-83) % Lymph % (Auto) 24.6 L (25-47) % [place] % (Auto) 6.7 (0-7) % Eos % (Auto) 1.5 (0-6) % Baso % (Auto) 0.3 (0-2) % Absolute Neuts (auto) 7.1 (1.5-7.7) 10^3/ul Absolute Lymphs (auto) 2.6 (1.0-4.8) 10^3/ul Absolute Monos (auto) 0.7 (0-0.8) 10^3/ul Absolute Eos (auto) 0.2 (0-0.6) 10^3/ul Absolute Basos (auto) 0 (0-0.2) 10^3/ul Absolute Nucleated RBC 0 10^3/ul Nucleated RBC % 0.1 Sodium 136 (135-145) mmol/L Potassium 3.6 (3.5-5.0) mmol/L Chloride 102 (101-111) mmol/L Carbon Dioxide 25 (22-32) mmol/L Anion Gap 9 (2-11) mmol/L BUN 21 (6-24) mg/dL Creatinine 0.84 (0.51-0.95) mg/dL Est GFR ( Amer) 96.3 (>60) Est GFR (Non-Af Amer) 79.6 (>60) BUN/Creatinine Ratio 25.0 H (8-20) Glucose 85 (70-100) mg/dL Calcium 9.8 (8.6-10.3) mg/dL Total Bilirubin 0.40 (0.2-1.0) mg/dL AST 18 (13-39) U/L ALT 23 (7-52) U/L Alkaline Phosphatase 68 (34-104) U/L C-Reactive Protein 25.75 H (<8.01) mg/L Total Protein 7.4 (6.4-8.9) g/dL Albumin 4.1 (3.2-5.2) g/dL Globulin 3.3 (2-4) g/dL Albumin/Globulin Ratio 1.2 (1-3) Lipase 47 (11.0-82.0) U/L Beta HCG, Quant > 611829.00 mIU/mL Urine Color Yellow Urine Appearance Cloudy Urine pH 5.0 (5-9) Ur Specific [place] 1.023 (1.010-1.030) Urine Protein Negative (Negative) Urine Ketones 1+ A (Negative) Urine Blood 1+ A (Negative) Urine Nitrate Negative (Negative) Urine Bilirubin Negative (Negative) Urine Urobilinogen Negative (Negative) Ur Leukocyte Esterase 3+ A (Negative) Urine WBC (Auto) 2+(11-20/hpf) A (Absent) Urine RBC (Auto) 2+(6-10/hpf) A (Absent) Ur Squamous Epith Cells Present A (Absent) Urine Bacteria 1+ A (Absent) Urine Glucose Negative (Negative) Result Diagrams: 11/09/17 21:29 11/09/17 21:29 Lab Statement: Any lab studies that have been ordered have been reviewed, and results considered in the medical decision making process. GIGU Course/Dx - Course Course Of Treatment: 32-year-old female presents with nausea vomiting diarrhea for the past couple days. She states she is 9 weeks . Last menstrual period was in August. Denies any abdominal pain. No vaginal discharge or bleeding. No pain with urination. no urgency or frequency. She takes she states she took some medication for morning sickness without relief. Patient has had morning sickness but did not have diarrhea in the past with such. No one else is sick. Denying eating anything different. No fevers. No constipation. On exam nontender abdomen. Labs within normal limits. Gave fluids and Reglan feeling better. Urine shows UTI Will treat with macrobid. Patient understands this plan. - Diagnoses Differential Diagnoses - Female: Gastroenteritis (Viral), Gastroenteritis ( Bacterial), Urinary Tract Infection Provider Diagnoses: Nausea vomiting and diarrhea, UTI (urinary tract infection) Discharge - Sign-Out/Discharge Documenting (check all that apply): Patient Departure - Discharge Plan Condition: Good Disposition: HOME Prescriptions: Metoclopramide TAB* [Reglan TAB*] 10 mg PO Q6H #20 tab Nitrofurantoin Monohyd/M-Cryst [Macrobid 100 mg Capsule] 100 mg PO BID #13 cap Patient Education Materials: Acute Nausea and Vomiting (ED), Urinary Tract Infection in (ED) Referrals: Kiki Chavez MAINTENANCE PLUMBER [Primary Care Provider] - Additional Instructions: take reglan every 6 hours for nausea Take tyenlol for pain every 6 hours Take Macrobid twice a day for 7days, first dose given in ED drink plenty of fluids When able to eat follow BRAT diet: Bananas, rice, applesauce, toast Follow up with primary in 7 days Return to ED if develop fever, flank pain, or any new or worsening symptoms - Billing Disposition and Condition Condition: GOOD Disposition: Home
[2017-11-10 00:33] VITALS: BP 123/76
== END 2017-11-10 00:31 | disposition home or self-care (01) ==
LOC: ED 20:01
DX: O23.41 Unspecified infection of urinary tract in pregnancy, first trimester (principal); O21.9 Vomiting of pregnancy, unspecified; R19.7 Diarrhea, unspecified; Z3A.09 9 weeks gestation of pregnancy; Z88.2 Allergy status to sulfonamides
CPT/HCPCS: 36415; 80053; 81003; 81015; 83690; 84702; 85025; 86140; 96374; 99283; A9270-GY; J2765

== ENCOUNTER 2018-06-13 18:49 | Inpatient (IN) | payer BC ==
[2018-06-13] MEDS ORDERED: Penicillin G Potassium IV* 5,000,000 UNITS in NS 0.9% 100 ML* 100 ML IVPB ONE (19:09)
[2018-06-13] MEDS ORDERED: Lactated Ringers 1000 ML Bag* 1,000 ML IV ONE (19:09)
[2018-06-13 19:33] LABS: ABS Basophils 0 10^3/ul (0-0.2); ABS Eosinophils 0.2 10^3/ul (0-0.6); ABS Lymphocytes 1.5 10^3/ul (1.0-4.8); ABS Monocytes 0.4 10^3/ul (0-0.8); ABS Neutrophils 7.2 10^3/ul (1.5-7.7); ABS Nucleated RBC 0 10^3/ul; Hematocrit 30 % (33-41); Hemoglobin 9.9 g/dL (12.0-16.0); Lymphocyte % 15.8 %; Mean Corpuscular HGB Conc 33 g/dL (31-36); Mean Corpuscular Hemoglobin 25 pg (27-31); Mean Corpuscular Volume 76 fL (80-97); Mean Platelet Volume 8.9 fL (7.4-10.4); Nucleated Red Blood Cells % 0; Platelet Count 182 10^3/uL (150-450); Red Blood Count 3.95 10^6 /uL (3.70-4.87); Red Cell Distribution Width 17 % (10.5-15); White Blood Count 9.3 10^3/uL (3.5-10.8)
[2018-06-13 19:49] LABS: Albumin 3.5 g/dL (3.2-5.2); Albumin/Globulin Ratio 1.3 (1-3); BUN/Creatinine Ratio 14.7 (8-20); Calcium 8.8 mg/dL (8.6-10.3); EGFR African American 109.8 (>60); EGFR Non-African American 90.7 (>60); Globulin 2.8 g/dL (2-4); Potassium 3.6 mmol/L (3.5-5.0); Total Bilirubin 0.4 mg/dL (0.2-1.0); Total Protein 6.3 g/dL (6.4-8.9); Uric Acid 5.5 mg/dL (2.3-6.6)
--- NOTE | 2018-06-13 20:04 | HP ---
General Information - Reason for Visit contractions every 4 min for past 2 hr - General Information Maternal Age: 32 Grav: 1 Para: 0 SAB: 0 IEA: 0 Estimated Due Date: 06/16/18 Determined By: LMP Gestational Age in Weeks/Days: 39 w 5 d Maternal Blood Type and Rh: A Positive - Results this Serology/RPR Result: Non-Reactive Rubella Result: Immune HBsAg Result: Negative HIV Result: Negative GBS Culture Result: Positive Past Medical History Past Medical History Comment: Depression/anxiety Kidney Stones Past Surgical History Comment: L bunionectomy age 17 Lithotrypsy, age 23, age 30 Pertinent Family History: Non-Contributory - Antepartal Records Antepartal Records: Reviewed, Uncomplicated Review of Systems Constitutional: Uncomfortable CV Complaint: No Respiratory: Shortness of Breath: No Gastrointestinal: Vomiting, Soft Stool Genitourinary: No Leaking Fluid Musculoskeletal: Contractions Neurological: No Headache, No Visual Changes Movement: Normal Exam Allergies/Adverse Reactions: Allergies Sulfa (Sulfonamide Antibiotics) Allergy (Verified 11/09/17 20:08) Unknown Reaction Details Lab Values - Entire Visit: Laboratory Tests 06/13/18 06/13/18 06/13/18 19:26 19:26 19:26 WBC 9.3 RBC 3.95 Hgb 9.9 L Hct 30 L MCV 76 L MCH 25 L MCHC 33 RDW 17 H Plt Count 182 MPV 8.9 Neut % (Auto) 77.3 Lymph % (Auto) 15.8 [place] % (Auto) 4.6 Eos % (Auto) 2.0 Baso % (Auto) 0.3 Absolute Neuts (auto) 7.2 Absolute Lymphs (auto) 1.5 Absolute Monos (auto) 0.4 Absolute Eos (auto) 0.2 Absolute Basos (auto) 0 Absolute Nucleated RBC 0 Nucleated RBC % 0 Sodium 138 Potassium 3.6 Chloride 107 Carbon Dioxide 23 Anion Gap 8 BUN 11 Creatinine 0.75 Est GFR ( Amer) 109.8 Est GFR (Non-Af Amer) 90.7 BUN/Creatinine Ratio 14.7 Glucose 90 Uric Acid 5.5 Calcium 8.8 Total Bilirubin 0.40 AST 18 ALT 12 Alkaline Phosphatase 209 H Total Protein 6.3 L Albumin 3.5 Globulin 2.8 Albumin/Globulin Ratio 1.3 Blood Type A Positive - Measurements Height: 5 ft Weight: 153 lb Weight in lbs: 153.932419 Body Mass Index (BMI): 29.9 Pre- Weight: 125 lb Weight Gained This : 28 lbs and 0 ozs - Exam Breast: - - soft, no masses Extremities: Edema Heart: Normal Rhythm/Heart Sounds HEENT: No Significant Findings Lungs: Clear Bilaterally Reflexes: DTR 2+ Thyroid: No Thyromegaly - Abdominal Exam Abdomen Exam: Non-Tender - Ultrasound/Biophysical Profile Ultrasound Status: Not Done Targeted Exam Findings Estimated Weight: 6.5 lbs Cervical Exam: 7cm Effacement: 100% Station: 0 Presenting Part: Vertex Membrane Status: Bulging EFM Findings - External Monitor Findings Baseline Heart Rate: 145 External Monitor Findings: Accelerations Present, No Pattern of Variable or Late Decelerations, Variability Moderate, Baseline Stable External Monitor Findings Comment: category 1 Contractions: Regular, Strong, 45-90 Seconds Contraction Frequency: every 2-4 Assessment/Plan - Assessment active labor - Obstetrical Risk Factors Obstetrical Risk Factors: GBS Positive, Gestational Hypertension - Plan Plan: Admit - Anticipate Vaginal Delivery - Date/Time of Admission Date of Admission: 06/13/18 Time of Admission: 19:10
--- NOTE | 2018-06-13 20:12 | PN ---
Progress Note - Progress Note Date of Service: 06/13/18 Note: feeling pressure Cervix: 9cm/100% AROM, mec stained fluid PCN in Will await full dilation, urge to push
[2018-06-13] MEDS ORDERED: Ondansetron INJ* 2 MG/ML VIAL ONE (20:28)
[2018-06-13] MEDS ORDERED: Ondansetron INJ* 2 MG/ML VIAL IV ONE (20:54)
--- NOTE | 2018-06-13 20:54 | PROCNOTE ---
[facility] OB: Delivery Note - Delivery A Date of : 06/13/18 Time of : 19:35 [place] Sex: Female Score 1 Minute: 9 Score 5 Minutes: 10 Gestational Age in Weeks and Days at Delivery: 39 Weeks and 4 Days Delivery Method: Spontaneous Vaginal Labor: Spontaneous Did Patient attempt ?: N/A, No Previous Amniotic Fluid: Meconium Estimated Blood Loss: 300 Anesthesia/Analgesia: CEI for Labor Anesthesia Comment: Dr. Germain Delivered By: Anjelica Murphy - Nursery Level of Nursery: Regular/Bedside - Perineum Perineal Injury: Perineal Laceration, 1st Degree Perineal Injury Comment: 3-0 ccg Perineal Repair: By Delivering Practioner - Events Delivery Events of Note: Pitocin During Labor - Additional Delivery Notes Additional Delivery Notes: Fully dilated at 1930, pushed 5 min SVB LFC, OA over 1st deg perineal laceration. Infant pink with stimulation. Placenta Howe. Uterine atony controlled with massage, IV with pitocin, Cytotec 800mcg pr. EBL 300cc.
[2018-06-13] MEDS ORDERED: Oxytocin in LR* 20 UNITS/1,000 ML BAG IVPB ONE ×2 (21:14→21:17)
--- NOTE | 2018-06-13 21:30 | PN ---
Progress Note - Progress Note Date of Service: 06/13/18 Note: pushing for 1hr, tiring quickly. FHT dropping with contractions. Good recovery. Dr. Murillo contacted, coming in to evaluate.
[2018-06-13] MEDS ORDERED: Terbutaline INJ* 1 MG/ML VIAL ONE (21:34)
[2018-06-13] MEDS ORDERED: Terbutaline INJ* 1 MG/ML VIAL SUBCUT ONE (21:44)
--- NOTE | 2018-06-13 21:48 | PN ---
Progress Note - Progress Note Date of Service: 06/13/18 Note: bradycardia to 50s. O2 on, position changes. Internal lead on. Terbutaline .25mg given. FHT now in 140s with mod. variability. Discussed with pt/family possible need for vacuum or CS delivery
[2018-06-13] MEDS ORDERED: Oxytocin in LR* 20 UNITS/1,000 ML BAG IVPB SCH (22:00)
--- NOTE | 2018-06-13 22:08 | PN ---
Progress Note - Progress Note Date of Service: 06/13/18 Note: Called to see pt being managed by sand control worker service. 2nd stage for about 90 min and FHT noted to have deep deceleration for several minutes to 60s during pushing over the past 30 min. Terbutaline given, ctx decreased, and FHR recovered well. Now with moderate variability in 150s, no decels. On exam, C/C/+1 with head asynclitic to patient's left. Considering recent concerning FHT with ctx, I recommended section, and pt agrees. We discussed delivery at length. We reviewed the risks including hemorrhage, transfusion, infection, organ injury , anesthesia complications, DVT, and even . All questions were discussed and consent signed.
[2018-06-13] MEDS ORDERED: Sodium Citrate/Citric Acid* 15 ML UDC ONE (22:11)
[2018-06-13] MEDS ORDERED: ceFOXitin 2 GM IVPREMIX* 2 GM/50 ML BAG IVPB ONE (22:11)
[2018-06-13] MEDS ORDERED: ceFOXitin 2 GM IVPREMIX* 2 GM/50 ML BAG ONE (22:11)
[2018-06-13] MEDS ORDERED: OXYTOCIN* 10 UNITS/ML 1 ML VIAL ONE (22:12)
[2018-06-13] MEDS ORDERED: Phenylephrine 40 MCG/ML SYRINGE ONE (22:12)
[2018-06-13] MEDS ORDERED: Lidocaine 2% PF * 5 ML VIAL ONE (22:13)
[2018-06-13] MEDS ORDERED: Bupivacaine-MPF SPINAL* 7.5 MG/ML - 2ML AMP ONE (22:13)
[2018-06-13] MEDS ORDERED: Morphine PF AMP (0.5MG/ML)* 5 MG/10 ML AMP ONE (22:14)
[2018-06-13] MEDS ORDERED: fentaNYL* 50 MCG/ML 2 ML VIAL (100 MCG VIAL) IV PRN (22:52)
[2018-06-13] MEDS ORDERED: Naloxone* 0.4 MG/ML 1 ML VIAL IV PRN ×2 (22:52→22:55)
[2018-06-13] MEDS ORDERED: Ondansetron INJ* 2 MG/ML VIAL IV PRN ×2 (22:52→22:55)
[2018-06-13] MEDS ORDERED: diPHENhydraMINE IV* 50 MG/ML 1 ml VIAL (BENADRYL) IV PRN (22:55)
[2018-06-13] MEDS ORDERED: Nalbuphine* 10 MG/ML 1 ML VIAL IV PRN (22:55)
[2018-06-13] MEDS ORDERED: oxyCODONE/Acetamin 5/325 MG* TAB PO PRN ×2 (22:55)
[2018-06-13] MEDS ORDERED: Ketorolac INJ* 30 MG/ML 1 ML VIAL IV PRN (22:55)
[2018-06-13] MEDS ORDERED: Penicillin G Potassium IV* 2,500,000 UNITS in NS 0.9% 100 ML* 100 ML IVPB SCH (23:30)
[2018-06-13] MEDS ORDERED: Witch Hazel PAD* JAR TOPICAL PRN (23:32)
[2018-06-13] MEDS ORDERED: Lactated Ringers 1000 ML Bag* 1,000 ML IV SCH (23:45)
--- NOTE | 2018-06-14 00:38 | OP ---
DATE OF OPERATION: 06/13/18 - ROOM #117 DATE OF : 89 SURGEON: Yael Murillo MD INSPECTOR PRECISION ASSEMBLY: Anjelica Murphy CNM ANESTHESIOLOGIST: Dr. Beard. ANESTHESIA: Spinal. PRE-OP DIAGNOSIS: A 39 plus 4 weeks gestation with persistent category II heart tracing. POST-OP DIAGNOSIS: A 39 plus 4 weeks gestation with persistent category II heart tracing. OPERATIVE PROCEDURE: Primary low-transverse section. ESTIMATED BLOOD LOSS: 700 cc. URINE OUTPUT: 100 cc. IV FLUIDS: 1150 cc lactated Ringer's. MATERIALS TO LAB: Cord blood and cord gases. INDICATIONS: This patient is a 32-year-old 1, para 0, who presented at 39 plus 4 weeks gestation, in active labor. The patient progressed well on labor, but then after about an hour of pushing the heart tracing was noted to have some persistent variable decelerations that reached as low as 60s. These initially had good recovery, but then there was a fairly prolonged deceleration. At that time, terbutaline was administered with good recovery of the heart tracing as the contractions decreased. On examination, the cervix was fully dilated, but the head was only at about 0 to +1 station. The head was also felt to be somewhat asynclitic. Considering the examination and the concerning heart tracing, the decision was made to proceed with a section. She was extensively counseled and consent was signed. FINDINGS: Normal-appearing uterus, fallopian tubes, and ovaries. Delivery was productive of a male weighing 6 pounds 14 ounces with Apgars of 7 and 9. TIME OF DELIVERY: 2243. Of note there was thick meconium present on entry into the uterus. No nuchal cord was found. COMPLICATIONS: None. DESCRIPTION OF PROCEDURE: The risks, benefits, and alternatives were described to the patient and informed consent was obtained. The patient was taken to the operating room with IV running where spinal anesthesia was induced and found to be adequate. The patient was prepped and draped in the normal sterile fashion in the dorsal supine position with leftward tilt. A Pfannenstiel skin incision was made with a scalpel and this was carried down to the underlying fascia sharply. The fascia was then scored in the midline with the scalpel. The incision was extended using Cummins scissors. The rectus muscles were dissected off the rectus fascia using blunt and sharp dissection. The rectus muscles were in the midline bluntly. The peritoneum was also entered bluntly. A bladder blade was placed. A bladder flap was created sharply using Metzenbaum scissors. A low transverse uterine incision was made with the scalpel. This was carried down to the amniotic cavity which was productive of clear fluid. The incision was extended with blunt traction. The head was elevated to the level of the incision without difficulty and delivered through the incision. With fundal pressure, the shoulders and body delivered without difficulty. The had an excellent tone and cried immediately on delivery. The cord was doubly clamped and cut. The infant was then handed to the awaiting silver plater. Cord blood was collected. The placenta then delivered with manual extraction. The uterus was then exteriorized and cleared of all clots and debris. Uterine incision was reapproximated using 0 Polysorb in a running-locked fashion. A second layer of imbricating sutures of 0 Polysorb was also placed with good hemostasis. The posterior cul-de-sac was irrigated with saline. The uterus was then returned to the abdomen, and the incision was reinspected and noted to be hemostatic. The peritoneum was closed with 2-0 chromic in a running fashion. The fascia was closed with 0 Polysorb in a running fashion. Subcutaneous tissues were reapproximated using 2-0 chromic and interrupted sutures. The skin was then closed with 4-0 Monocryl in a subcuticular stitch. Mastisol and Steri-Strips were placed over the incision which was then covered with a sterile bandage. The patient tolerated the procedure well. Sponge, lap, and needle counts were correct x2. [id number]/[facility] #: [id number] [facility]
[2018-06-14 07:50] LABS: ABS Basophils 0 10^3/ul (0-0.2); ABS Eosinophils 0 10^3/ul (0-0.6); ABS Lymphocytes 1.3 10^3/ul (1.0-4.8); ABS Monocytes 0.6 10^3/ul (0-0.8); ABS Neutrophils 10.5 10^3/ul (1.5-7.7); ABS Nucleated RBC 0 10^3/ul; Eosinophil % 0.1 %; Hematocrit 26 % (33-41); Hemoglobin 8.3 g/dL (12.0-16.0); Lymphocyte % 10.2 %; Mean Corpuscular HGB Conc 32 g/dL (31-36); Mean Corpuscular Hemoglobin 24 pg (27-31); Mean Corpuscular Volume 76 fL (80-97); Mean Platelet Volume 8.6 fL (7.4-10.4); Nucleated Red Blood Cells % 0.1; Platelet Count 161 10^3/uL (150-450); Red Blood Count 3.42 10^6 /uL (3.70-4.87); Red Cell Distribution Width 17 % (10.5-15); White Blood Count 12.4 10^3/uL (3.5-10.8)
[2018-06-14] MEDS: Docusate CAP* 100 MG PO SCH ×3 (08:41→20:41)
[2018-06-14] MEDS: Ferrous Gluconate TAB* 324 MG TAB PO SCH ×2 (08:41→20:41)
[2018-06-14] MEDS: Simethicone TAB* 80 MG TAB.CHEW PO SCH ×4 (08:41→20:41)
[2018-06-14] MEDS: Lactated Ringers 1000 ML Bag* 1,000 ML IV SCH ×2 (09:58→14:05)
[2018-06-14] MEDS ORDERED: Lidocaine 1%* 5 ML VIAL ONE (12:12)
[2018-06-14] MEDS ORDERED: Acetaminophen TAB* 325 MG PO PRN (14:30)
[2018-06-14] MEDS: Ibuprofen TAB* 600 MG PO PRN ×2 (17:47→23:50)
[2018-06-14] MEDS: oxyCODONE/Acetamin 5/325 MG* TAB PO PRN (20:41)
[2018-06-14] MEDS: DULoxetine DR CAP* 30 MG CAP.DR PO SCH (21:20)
[2018-06-15] MEDS: oxyCODONE/Acetamin 5/325 MG* TAB PO PRN ×4 (03:52→21:45)
[2018-06-15] MEDS: DULoxetine DR CAP* 30 MG CAP.DR PO SCH ×2 (08:24→21:45)
[2018-06-15] MEDS: Ibuprofen TAB* 600 MG PO PRN ×3 (08:24→23:12)
[2018-06-15] MEDS: Ferrous Gluconate TAB* 324 MG TAB PO SCH ×2 (08:25→21:40)
[2018-06-15] MEDS: Docusate CAP* 100 MG PO SCH ×3 (08:25→21:38)
[2018-06-15] MEDS: Simethicone TAB* 80 MG TAB.CHEW PO SCH ×5 (08:25→21:39)
[2018-06-15] MEDS ORDERED: Tetan/Diph/Pertus SYR(Tdap)* 0.5 ML SYR(BOOSTRIX) use SYR IM ONE (09:00)
[2018-06-16] MEDS: oxyCODONE/Acetamin 5/325 MG* TAB PO PRN ×6 (01:49→23:39)
[2018-06-16] MEDS: Ibuprofen TAB* 600 MG PO PRN ×4 (05:29→23:39)
[2018-06-16] MEDS: DULoxetine DR CAP* 30 MG CAP.DR PO SCH ×2 (11:31→20:52)
[2018-06-16] MEDS: Ferrous Gluconate TAB* 324 MG TAB PO SCH ×2 (11:31→20:12)
[2018-06-16] MEDS: Simethicone TAB* 80 MG TAB.CHEW PO SCH ×4 (11:31→20:13)
[2018-06-16] MEDS: Docusate CAP* 100 MG PO SCH ×2 (11:31→20:13)
[2018-06-16 20:59] VITALS: BP 139/86
[2018-06-17] MEDS: oxyCODONE/Acetamin 5/325 MG* TAB PO PRN ×2 (03:30→11:50)
[2018-06-17] MEDS: Ibuprofen TAB* 600 MG PO PRN ×2 (06:08→11:50)
[2018-06-17] MEDS: DULoxetine DR CAP* 30 MG CAP.DR PO SCH (09:42)
[2018-06-17] MEDS: Ferrous Gluconate TAB* 324 MG TAB PO SCH (09:43)
[2018-06-17] MEDS: Simethicone TAB* 80 MG TAB.CHEW PO SCH ×2 (09:43→11:50)
[2018-06-17] MEDS: Docusate CAP* 100 MG PO SCH (09:43)
== END 2018-06-17 13:00 | disposition home or self-care (01) | DRG 540 ==
LOC: MCHOBOUT 18:49 → MCHOB 19:07
PROVIDERS: ADMIT Midwife; ATTEND Midwife
PROC: 10907ZC Drainage of Amniotic Fluid, Therapeutic from Products of Conception, Via Natural or Artificial Opening (ICD-10-PCS; 2018-06-13)
PROC: 10D00Z1 Extraction of Products of Conception, Low, Open Approach (ICD-10-PCS; principal; 2018-06-13 22:19)
DX: O76 Abnormality in fetal heart rate and rhythm complicating labor and delivery (principal); O13.4 Gestational [pregnancy-induced] hypertension without significant proteinuria, complicating childbirth; O99.824 Streptococcus B carrier state complicating childbirth; O99.344 Other mental disorders complicating childbirth; F32.9 Major depressive disorder, single episode, unspecified; O69.81X0 Labor and delivery complicated by cord around neck, without compression, not applicable or unspecified; O77.0 Labor and delivery complicated by meconium in amniotic fluid; O32.4XX0 Maternal care for high head at term, not applicable or unspecified; Z3A.39 39 weeks gestation of pregnancy; Z37.0 Single live birth
CPT/HCPCS: 36415; 80053; 84550; 85025; 86850; 86900; 86901; 90715; A9270-GY; J0694; J1885; J2405; J2540; J2590; J3105

== ENCOUNTER 2022-11-09 16:15 | Inpatient (IN) ==
[2022-11-09] MEDS ORDERED: Promethazine INJ(RESTRICTED) 25 MG/ML 1 ml VIAL IV PRN (16:52)
[2022-11-09] MEDS ORDERED: Nalbuphine 10 MG/ML 1 ML VIAL IV PRN (16:52)
[2022-11-09] MEDS ORDERED: Buffered Lidocaine 1% SYRIN 1 ml INTRADERM ONE ×2 (16:52→20:48)
[2022-11-09] MEDS ORDERED: Buffered Lidocaine 1% SYRIN 1 ml ONE (17:04)
[2022-11-09] MEDS: Lactated Ringers 1000 ml BAG 1,000 ML IV ONE ×2 (17:10→18:23)
[2022-11-09] MEDS ORDERED: Morphine 10 MG/ML VIAL (1 ml) IV ONE (18:12)
[2022-11-09] MEDS ORDERED: ceFOXitin 2 GM IVPREMIX 2 GM/50 ML BAG IVPB ONE (20:48)
[2022-11-09] MEDS ORDERED: Sodium Citrate/Citric Acid LIQ 15 ML UDC PO ONE (20:48)
[2022-11-09] MEDS ORDERED: Lactated Ringers 1000 ml BAG 1,000 ML IV ONE (20:48)
[2022-11-09] MEDS ORDERED: Lactated Ringers 1000 ml BAG 1,000 ML IV SCH ×2 (21:00→23:45)
[2022-11-09] MEDS ORDERED: Dexamethasone IV 4 MG/ML VIAL 1 ml VIAL ONE (21:42)
[2022-11-09] MEDS ORDERED: Ondansetron 4 mg VIAL 2 MG/ML 2 ml VIAL ONE (21:42)
[2022-11-09] MEDS ORDERED: Oxytocin 10 UNITS/ML 1 ML VIAL ONE (21:42)
[2022-11-09] MEDS ORDERED: Morphine PF AMP (0.5MG/ML) 5 MG/10 ML AMP ONE (21:56)
[2022-11-09] MEDS ORDERED: Acetaminophen IV 1 GM/100ML 1,000 MG/100 ML BAG IV ONE (23:12)
[2022-11-09] MEDS ORDERED: Glycerin ADULT 2.4 gm SUPP PR PRN (23:30)
[2022-11-09] MEDS ORDERED: Witch Hazel PAD JAR TOPICAL PRN (23:30)
[2022-11-09] MEDS ORDERED: Dibucaine 1% OINT 28.35 GM TUBE PR PRN (23:30)
[2022-11-09] MEDS ORDERED: Oxytocin in LR 20,000 MILLI.UNIT/1,000 ML BAG IV SCH (23:30)
[2022-11-09] MEDS ORDERED: fentaNYL 100 mcg/2 ml 50 MCG/ML VIAL IV PRN (23:32)
[2022-11-09] MEDS ORDERED: Ondansetron 4 mg VIAL 2 MG/ML 2 ml VIAL IV PRN ×2 (23:32→23:33)
[2022-11-09] MEDS ORDERED: Naloxone 0.4 mg VIAL 0.4 mg/ml 1 ml VIAL IV PRN (23:32)
[2022-11-09] MEDS ORDERED: Metoclopramide 5 MG/ML VIAL (10 mg) IV PRN (23:33)
[2022-11-09] MEDS ORDERED: Scopolamine 1 mg/72hr PATCH TRANSDERM PRN (23:33)
[2022-11-09] MEDS ORDERED: Naloxone 0.4 mg VIAL 0.4 mg/ml 1 ml VIAL IV PUSH PRN (23:33)
[2022-11-09] MEDS ORDERED: Acetaminophen IV 1 GM/100ML 1,000 MG/100 ML BAG IV PRN (23:33)
[2022-11-09 23:39] LABS: Urine Appearance Clear; Urine Bilirubin Negative (Negative); Urine Blood 3+ (Negative); Urine Color Straw; Urine Glucose Negative (Negative); Urine Ketones Negative (Negative); Urine Nitrite Negative (Negative); Urine Protein Negative (Negative); Urine Specific Gravity 1.004 (1.002-1.030); Urine Urobilinogen Negative (Negative)
[2022-11-09 23:47] LABS: Urine Bacteria 1+ (Absent); Urine Red Blood Cell 1+(3-5/hpf) (Absent); Urine Squamous Epithelial Cell Present (Absent); Urine White Blood Cell 2+(11-20/hpf) (Absent)
[2022-11-09 23:55] LABS: Urine Benzodiazepine Screen None Detected (None Detect); Urine Cannabinoids Screen None Detected (None Detect); Urine Opiates Screen Presumptive Positive (None Detect)
[2022-11-10 06:23] LABS: Hematocrit 31.2 % (35-45); Hemoglobin 10.6 g/dL (11.5-14.3); Mean Corpuscular Hemoglobin 28.1 pg (27-33); Mean Corpuscular Volume 82.7 fL (80-97); Mean Platelet Volume 9.2 fL (7.5-11.2); Platelet Count 143 10^3/uL (150-450); Red Blood Count 3.77 10^6/uL (3.63-4.92); White Blood Count 13.4 10^3/uL (3.8-11.8)
[2022-11-10] MEDS: DULoxetine DR 30 mg CAP PO SCH (09:18)
[2022-11-10 09:20] LABS: ABS Lymphocytes 0.9 10^3/uL (1.0-4.8); ABS Monocytes 0.3 10^3/uL (0.0-0.9); ABS Neutrophils 12.1 10^3/uL (1.5-7.6); ABS Nucleated RBC 0.02 10^3/ul; Anisocytosis 2+; Nucleated Red Blood Cells % 0.1 /100 WBC (0.0-0.4); Polychromasia 1+
[2022-11-11] MEDS: DULoxetine DR 30 mg CAP PO SCH (08:55)
[2022-11-12 07:45] VITALS: BP 120/68
[2022-11-12] MEDS: DULoxetine DR 30 mg CAP PO SCH (09:10)
== END 2022-11-12 13:40 | disposition home or self-care (01) | DRG 540 ==
LOC: MCHOBOUT 16:15 → MCHOB 20:47
PROVIDERS: ADMIT Obstetrics & Gynecology; ATTEND Obstetrics & Gynecology

== ENCOUNTER 2023-02-04 17:31 | Inpatient (IN) ==
[2023-02-04] MEDS ORDERED: NS 0.9% 1000 ml BAG 1,000 ML IV ONE (18:13)
[2023-02-04 18:30] LABS: ABS Lymphocytes 0.7 10^3/uL (1.0-4.8); ABS Monocytes 0.8 10^3/uL (0.0-0.9); ABS Neutrophils 13.6 10^3/uL (1.5-7.6); Hematocrit 36.7 % (35-45); Hemoglobin 12.5 g/dL (11.5-14.3); Lymphocyte % 4.6 %; Mean Corpuscular Hemoglobin 28.9 pg (27-33); Mean Corpuscular Hgb Conc 34.1 g/dL (31-36); Mean Corpuscular Volume 84.7 fL (80-97); Mean Platelet Volume 7.9 fL (7.5-11.2); Platelet Count 251 10^3/uL (150-450); Red Blood Count 4.33 10^6/uL (3.63-4.92); Red Cell Distribution Width 15.9 % (12-17); White Blood Count 15.1 10^3/uL (3.8-11.8)
[2023-02-04 18:52] LABS: ALT 43 U/L (7-52); AST 20 U/L (13-39); Albumin 4.1 g/dL (3.2-5.2); Albumin/Globulin Ratio 1.2 (1-3); Alkaline Phosphatase 77 U/L (35-149); Anion Gap 12 mmol/L (2-16); Blood Urea Nitrogen 16 mg/dL (6-24); C Reactive Protein 138.56 mg/L (<8.01); CO2 Carbon Dioxide 21 mmol/L (22-32); Chloride 102 mmol/L (101-111); Creatinine, Serum 0.81 mg/dL (0.51-0.95); Globulin 3.3 g/dL (2-4); Glucose 137 mg/dL (70-100); Potassium 3.5 mmol/L (3.5-5.0); Sodium 135 mmol/L (135-145); Total Bilirubin 0.8 mg/dL (0.2-1.0); Total Protein 7.4 g/dL (6.4-8.9)
[2023-02-04 18:55] LABS: HCG Pregnancy < 0.60 mIU/mL
[2023-02-04] MEDS ORDERED: cefTRIAXone 1 gm/50 mL D5W 1 GM/50 ML BAG IV ONE ×2 (18:56→20:47)
[2023-02-04] MEDS ORDERED: Lactated Ringers 1000 ml BAG 1,000 ML IV ONE ×2 (20:09→21:43)
[2023-02-04 20:23] LABS: Urine Appearance Cloudy; Urine Bilirubin Negative (Negative); Urine Blood 2+ (Negative); Urine Color Yellow; Urine Glucose Negative (Negative); Urine Ketones Trace (Negative); Urine Nitrite Negative (Negative); Urine Protein Negative (Negative); Urine Specific Gravity 1.005 (1.002-1.030); Urine Urobilinogen Negative (Negative)
[2023-02-04 20:34] LABS: Urine Bacteria 1+ (Absent); Urine Red Blood Cell 3+(>10/hpf) (Absent); Urine Squamous Epithelial Cell Present (Absent); Urine White Blood Cell 3+(>20/hpf) (Absent)
[2023-02-04] MEDS ORDERED: Polyethylene Glycol 3350 17 GM PACKET PO PRN (21:39)
[2023-02-04] MEDS ORDERED: Senna TAB 8.6 mg TAB PO PRN (21:39)
[2023-02-04] MEDS ORDERED: HYDROcodone/ACETAMIN 5/325 mg TAB PO PRN (21:48)
[2023-02-05] MEDS: Ondansetron 4 mg VIAL 2 MG/ML 2 ml VIAL IV PRN ×4 (00:21→14:34)
[2023-02-05] MEDS: DULoxetine DR 30 mg CAP PO SCH ×2 (00:21→20:32)
[2023-02-05] MEDS ORDERED: Lactated Ringers 1000 ml BAG 1,000 ML IV ONE ×2 (01:04→02:14)
[2023-02-05] MEDS ORDERED: Ondansetron 4 mg VIAL 2 MG/ML 2 ml VIAL ONE (05:34)
[2023-02-05] MEDS ORDERED: HYDROcodone/ACETAMIN 5/325 mg TAB PO PRN ×2 (05:35→09:16)
[2023-02-05] MEDS ORDERED: fentaNYL 100 mcg/2 ml 50 MCG/ML VIAL IV PRN ×2 (05:35→09:16)
[2023-02-05] MEDS ORDERED: Prochlorperazine 5 mg/ml 2 ml VIAL (10 mg) IV PRN ×3 (05:35→17:50)
[2023-02-05] MEDS ORDERED: Naloxone 0.4 mg VIAL 0.4 mg/ml 1 ml VIAL IV PRN ×2 (05:35→09:16)
[2023-02-05] MEDS ORDERED: fentaNYL 100 mcg/2 ml 50 MCG/ML VIAL ONE (05:55)
[2023-02-05] MEDS ORDERED: Propofol 10 MG/ML 20 ML BTL ONE ×2 (05:55→06:47)
[2023-02-05] MEDS ORDERED: Lidocaine 2% PF 5 ML VIAL ONE (05:56)
[2023-02-05] MEDS ORDERED: Succinylcholine 200 mg VIAL 20 mg/ml 10 ml VIAL (200 mg) ONE (05:56)
[2023-02-05] MEDS ORDERED: Iohexol 180 (CONTRAST) 10 ML SDV IV ONE (06:20)
[2023-02-05] MEDS ORDERED: Phenylephrine 40 mcg/mL 10mL (400mcg) SYRINGE ONE (06:38)
[2023-02-05 09:21] LABS: Calcium 7.6 mg/dL (8.6-10.3); Creatinine, Serum 0.76 mg/dL (0.51-0.95); Potassium 3.4 mmol/L (3.5-5.0); eGFR CKD-EPI 104.7 (>60)
[2023-02-05] MEDS: NS 0.9% 1000 ml BAG 1,000 ML IV SCH ×2 (10:55→17:35)
[2023-02-05] MEDS ORDERED: Potassium Chlor 20 meq TAB.ER PO ONE (11:46)
[2023-02-05] MEDS: cefTRIAXone 1 gm/50 mL D5W 1 GM/50 ML BAG IV SCH (20:31)
[2023-02-05] MEDS ORDERED: NS 0.9% 500 ml BAG 500 ML IV ONE (22:23)
[2023-02-06] MEDS: NS 0.9% 1000 ml BAG 1,000 ML IV SCH (04:25)
[2023-02-06 06:20] LABS: ABS Monocytes 0.6 10^3/uL (0.0-0.9); ABS Neutrophils 7.9 10^3/uL (1.5-7.6); Hematocrit 28.8 % (35-45); Hemoglobin 9.8 g/dL (11.5-14.3); Mean Corpuscular Hemoglobin 29.2 pg (27-33); Mean Corpuscular Hgb Conc 34.1 g/dL (31-36); Mean Corpuscular Volume 85.6 fL (80-97); Mean Platelet Volume 7.7 fL (7.5-11.2); Platelet Count 166 10^3/uL (150-450); Red Blood Count 3.37 10^6/uL (3.63-4.92); Red Cell Distribution Width 16.1 % (12-17); White Blood Count 9.4 10^3/uL (3.8-11.8)
[2023-02-06 06:21] LABS: ABS Nucleated RBC 0.01 10^3/ul; Eosinophil % 0.2 %; Lymphocyte % 10.3 %; Nucleated Red Blood Cells % 0.1 %/100WBC (0.0-0.8)
[2023-02-06 06:46] LABS: Calcium 7.1 mg/dL (8.6-10.3); Creatinine, Serum 0.67 mg/dL (0.51-0.95); Magnesium 1.4 mg/dL (1.9-2.7); Potassium 2.8 mmol/L (3.5-5.0); eGFR CKD-EPI 116.8 (>60)
[2023-02-06] MEDS ORDERED: Potassium Chlor 20 meq TAB.ER PO ONE (07:21)
[2023-02-06] MEDS ORDERED: Magnesium Sulf 4 GM/100 ML IV 4,000 MG/100 ML BAG IVPB ONE (07:21)
[2023-02-06] MEDS: Ondansetron 4 mg VIAL 2 MG/ML 2 ml VIAL IV PRN (09:05)
[2023-02-06] MEDS: KCL 20 MEQ/100 ML IVPREMIX 20 MEQ/100 ML BAG IV SCH ×2 (09:09→16:28)
[2023-02-06] MEDS: HYDROcodone/ACETAMIN 5/325 mg TAB PO PRN ×2 (13:41→20:28)
[2023-02-06] MEDS ORDERED: KCL 20 MEQ/100 ML IVPREMIX 20 MEQ/100 ML BAG IV SCH (17:00)
[2023-02-06] MEDS: DULoxetine DR 30 mg CAP PO SCH (20:14)
[2023-02-06] MEDS: cefTRIAXone 1 gm/50 mL D5W 1 GM/50 ML BAG IV SCH (20:17)
[2023-02-07 06:08] LABS: ABS Eosinophils 0.3 10^3/uL (0.0-0.5); ABS Lymphocytes 1.2 10^3/uL (1.0-4.8); ABS Monocytes 0.3 10^3/uL (0.0-0.9); ABS Neutrophils 4.3 10^3/uL (1.5-7.6); Eosinophil % 4.6 %; Hemoglobin 10.8 g/dL (11.5-14.3); Lymphocyte % 19.2 %; Mean Corpuscular Hemoglobin 28.6 pg (27-33); Mean Corpuscular Hgb Conc 33.6 g/dL (31-36); Mean Corpuscular Volume 85.3 fL (80-97); Mean Platelet Volume 8.3 fL (7.5-11.2); Nucleated Red Blood Cells % 0.1 %/100WBC (0.0-0.8); Platelet Count 188 10^3/uL (150-450); Red Blood Count 3.76 10^6/uL (3.63-4.92); Red Cell Distribution Width 15.7 % (12-17); White Blood Count 6.1 10^3/uL (3.8-11.8)
[2023-02-07 06:17] LABS: Calcium 8.1 mg/dL (8.6-10.3); Creatinine, Serum 0.62 mg/dL (0.51-0.95); Potassium 3.6 mmol/L (3.5-5.0)
[2023-02-07 10:02] VITALS: BP 131/80
== END 2023-02-07 11:13 | disposition home or self-care (01) | DRG 720 ==
LOC: ED 17:31 → EDHOLD 17:31 → ED 02-05 04:32 → AA 02-05 04:32 → SSU 02-05 04:32 → SDS 02-05 04:46 → SSU 02-05 07:01
PROVIDERS: ADMIT Internal Medicine; ATTEND Internal Medicine

== ENCOUNTER 2023-02-20 13:29 | Inpatient (IN) ==
[2023-02-20] MEDS ORDERED: NS 0.9% 1000 ml BAG 2,000 ML IV ONE (13:36)
[2023-02-20] MEDS ORDERED: Ondansetron 4 mg VIAL 2 MG/ML 2 ml VIAL IV ONE (13:46)
[2023-02-20 14:02] LABS: ABS Basophils 0.1 10^3/uL (0.0-0.1); ABS Eosinophils 0.2 10^3/uL (0.0-0.5); ABS Lymphocytes 1.4 10^3/uL (1.0-4.8); ABS Monocytes 0.8 10^3/uL (0.0-0.9); ABS Neutrophils 17.7 10^3/uL (1.5-7.6); Eosinophil % 0.9 %; Hematocrit 37.7 % (35-45); Hemoglobin 12.7 g/dL (11.5-14.3); Mean Corpuscular Hgb Conc 33.8 g/dL (31-36); Mean Corpuscular Volume 85.8 fL (80-97); Mean Platelet Volume 8.2 fL (7.5-11.2); Platelet Count 301 10^3/uL (150-450); Red Cell Distribution Width 16.2 % (12-17); White Blood Count 20.2 10^3/uL (3.8-11.8)
[2023-02-20] MEDS ORDERED: cefTRIAXone 2 gm/50 mL D5W 2 GM/50 ML BAG IV ONE (14:18)
[2023-02-20 14:32] LABS: Activated Partial Thrombo Time 28.2 seconds (26.0-38.0); INR 1.24 (0.83-1.13)
[2023-02-20 14:41] LABS: High Sens Troponin Baseline 3 pg/mL (<15)
[2023-02-20] MEDS ORDERED: NS 0.9% 1000 ml BAG 1,000 ML IV ONE (14:46)
[2023-02-20 15:01] LABS: ALT 22 U/L (7-52); Albumin 4.2 g/dL (3.2-5.2); Alkaline Phosphatase 78 U/L (35-149); Blood Urea Nitrogen 15 mg/dL (6-24); C Reactive Protein 332.33 mg/L (<8.01); CO2 Carbon Dioxide 22 mmol/L (22-32); Calcium 9.8 mg/dL (8.6-10.3); Chloride 98 mmol/L (101-111); Creatinine, Serum 0.88 mg/dL (0.51-0.95); Globulin 4.1 g/dL (2-4); Glucose 106 mg/dL (70-100); Sodium 134 mmol/L (135-145); Total Protein 8.3 g/dL (6.4-8.9); eGFR CKD-EPI 87.8 (>60)
[2023-02-20 15:02] LABS: Anion Gap 14 mmol/L (2-16)
[2023-02-20] MEDS ORDERED: Piperacillin/Tazobac 3.375 BAG 3.375 GM/100 ML BAG IV ONE (15:09)
[2023-02-20 15:47] LABS: High Sensitivity Troponin 1 Hr 3 pg/mL (<15)
[2023-02-20] MEDS ORDERED: Zosyn per Pharmacy NOTE FOLLOW UP SCH (16:00)
[2023-02-20] MEDS: ZOSYN 3.375 GM Q8H per EXTENDED INFUSION IV SCH (19:02)
[2023-02-20 19:26] LABS: Potassium, Whole Blood 4.2 mmol/L (3.4-4.5)
[2023-02-20 19:37] LABS: Urine Appearance Cloudy; Urine Bilirubin Negative (Negative); Urine Blood 2+ (Negative); Urine Color Yellow; Urine Glucose Negative (Negative); Urine Ketones 1+ (Negative); Urine Nitrite Negative (Negative); Urine Protein 2+(100 mg/dL) (Negative); Urine Specific Gravity 1.016 (1.002-1.030); Urine Urobilinogen Negative (Negative)
[2023-02-20 19:42] LABS: Urine Bacteria 1+ (Absent); Urine Red Blood Cell 3+(>10/hpf) (Absent); Urine Squamous Epithelial Cell Present (Absent); Urine White Blood Cell 3+(>20/hpf) (Absent)
[2023-02-20] MEDS: Ondansetron 4 mg VIAL 2 MG/ML 2 ml VIAL IV PRN (22:56)
[2023-02-21] MEDS: ZOSYN 3.375 GM Q8H per EXTENDED INFUSION IV SCH (03:13)
[2023-02-21 06:56] LABS: ABS Eosinophils 0.4 10^3/uL (0.0-0.5); ABS Lymphocytes 1.1 10^3/uL (1.0-4.8); ABS Monocytes 0.5 10^3/uL (0.0-0.9); ABS Neutrophils 6.5 10^3/uL (1.5-7.6); Hematocrit 31.4 % (35-45); Hemoglobin 10.5 g/dL (11.5-14.3); Lymphocyte % 12.9 %; Mean Corpuscular Hemoglobin 28.9 pg (27-33); Mean Corpuscular Hgb Conc 33.4 g/dL (31-36); Mean Corpuscular Volume 86.6 fL (80-97); Mean Platelet Volume 8.2 fL (7.5-11.2); Platelet Count 224 10^3/uL (150-450); Red Blood Count 3.63 10^6/uL (3.63-4.92); Red Cell Distribution Width 16.3 % (12-17); White Blood Count 8.6 10^3/uL (3.8-11.8)
[2023-02-21 07:10] LABS: Calcium 8.7 mg/dL (8.6-10.3); Creatinine, Serum 0.78 mg/dL (0.51-0.95); Magnesium 1.8 mg/dL (1.9-2.7); Phosphorus 2.4 mg/dL (2.5-5.0); Potassium 3.7 mmol/L (3.5-5.0); eGFR CKD-EPI 101.5 (>60)
[2023-02-21] MEDS ORDERED: Magnesium Sulfate IV 1GM/100ML 1 GM/100 ML BAG IV ONE (08:30)
[2023-02-21] MEDS: DULoxetine DR 60 mg CAP PO SCH ×2 (10:19→21:02)
[2023-02-21] MEDS: Ondansetron 4 mg VIAL 2 MG/ML 2 ml VIAL IV PRN ×2 (10:23→17:40)
[2023-02-21] MEDS ORDERED: cefTRIAXone 2 gm/50 mL D5W 2 GM/50 ML BAG IV SCH ×2 (11:00→15:00)
[2023-02-21] MEDS: Norethindrone/Eth Est 1.5/30NF TAB PO SCH (11:35)
[2023-02-22 06:04] LABS: ABS Basophils 0.1 10^3/uL (0.0-0.1); ABS Eosinophils 0.8 10^3/uL (0.0-0.5); ABS Lymphocytes 1.1 10^3/uL (1.0-4.8); ABS Monocytes 0.3 10^3/uL (0.0-0.9); ABS Nucleated RBC 0.01 10^3/ul; Eosinophil % 12.7 %; Hematocrit 31.6 % (35-45); Hemoglobin 10.8 g/dL (11.5-14.3); Lymphocyte % 17.5 %; Mean Corpuscular Hemoglobin 29.2 pg (27-33); Mean Corpuscular Hgb Conc 34.1 g/dL (31-36); Mean Corpuscular Volume 85.4 fL (80-97); Mean Platelet Volume 8.1 fL (7.5-11.2); Nucleated Red Blood Cells % 0.1 %/100WBC (0.0-0.8); Platelet Count 249 10^3/uL (150-450); Red Cell Distribution Width 16.3 % (12-17); White Blood Count 6.3 10^3/uL (3.8-11.8)
[2023-02-22 06:22] LABS: Creatinine, Serum 0.66 mg/dL (0.51-0.95); Magnesium 1.9 mg/dL (1.9-2.7); Potassium 3.4 mmol/L (3.5-5.0); eGFR CKD-EPI 117.2 (>60)
[2023-02-22] MEDS ORDERED: Iohexol 180 (CONTRAST) 10 ML SDV IV ONE (07:10)
[2023-02-22] MEDS ORDERED: fentaNYL 100 mcg/2 ml 50 MCG/ML VIAL ONE ×2 (07:13→08:29)
[2023-02-22] MEDS ORDERED: Midazolam 2 mg/2 ml VIAL 1 mg/ml 2 ml VIAL (2 mg) ONE (07:13)
[2023-02-22] MEDS ORDERED: Propofol 10 MG/ML 20 ML BTL ONE (07:13)
[2023-02-22] MEDS ORDERED: Lidocaine 2% PF 5 ML VIAL ONE (07:13)
[2023-02-22] MEDS ORDERED: fentaNYL 100 mcg/2 ml 50 MCG/ML VIAL IV PRN (07:48)
[2023-02-22] MEDS ORDERED: Naloxone 0.4 mg VIAL 0.4 mg/ml 1 ml VIAL IV PRN (07:48)
[2023-02-22] MEDS ORDERED: Ondansetron 4 mg VIAL 2 MG/ML 2 ml VIAL IV PRN (07:48)
[2023-02-22] MEDS ORDERED: Scopolamine 1 mg/72hr PATCH TRANSDERM PRN (07:48)
[2023-02-22] MEDS ORDERED: Dexamethasone IV 4 MG/ML VIAL 1 ml VIAL ONE ×2 (08:29)
[2023-02-22] MEDS ORDERED: Ondansetron 4 mg VIAL 2 MG/ML 2 ml VIAL ONE ×3 (08:29→09:53)
[2023-02-22] MEDS ORDERED: Phenylephrine 40 mcg/mL 10mL (400mcg) SYRINGE ONE (09:03)
[2023-02-22] MEDS ORDERED: cefTRIAXone 2 gm/50 mL D5W 2 GM/50 ML BAG IV SCH (11:00)
[2023-02-22] MEDS ORDERED: NS 0.9% 1,000 ML IV SCH (11:30)
[2023-02-22] MEDS: DULoxetine DR 60 mg CAP PO SCH (12:01)
[2023-02-22] MEDS: cefTRIAXone 2 gm/50 mL D5W 2 GM/50 ML BAG IV SCH (12:03)
[2023-02-22] MEDS: Norethindrone/Eth Est 1.5/30NF TAB PO SCH (12:49)
[2023-02-22] MEDS: Linezolid 600 MG IVPREMIX(*) 600 MG/300 ML BAG IVPB SCH (15:50)
[2023-02-23] MEDS: Linezolid 600 MG IVPREMIX(*) 600 MG/300 ML BAG IVPB SCH ×2 (03:03→15:03)
[2023-02-23 05:53] LABS: ABS Lymphocytes 1.1 10^3/uL (1.0-4.8); ABS Monocytes 0.3 10^3/uL (0.0-0.9); ABS Neutrophils 3.3 10^3/uL (1.5-7.6); Eosinophil % 0.1 %; Hemoglobin 9.9 g/dL (11.5-14.3); Lymphocyte % 23.1 %; Mean Corpuscular Hemoglobin 29.2 pg (27-33); Mean Corpuscular Hgb Conc 34.2 g/dL (31-36); Mean Corpuscular Volume 85.2 fL (80-97); Mean Platelet Volume 8.3 fL (7.5-11.2); Nucleated Red Blood Cells % 0.1 %/100WBC (0.0-0.8); Platelet Count 280 10^3/uL (150-450); Red Blood Count 3.41 10^6/uL (3.63-4.92); Red Cell Distribution Width 15.7 % (12-17); White Blood Count 4.7 10^3/uL (3.8-11.8)
[2023-02-23 06:12] LABS: Calcium 8.7 mg/dL (8.6-10.3); Creatinine, Serum 0.68 mg/dL (0.51-0.95); Magnesium 1.8 mg/dL (1.9-2.7); Potassium 3.2 mmol/L (3.5-5.0); eGFR CKD-EPI 116.4 (>60)
[2023-02-23] MEDS: cefTRIAXone 2 gm/50 mL D5W 2 GM/50 ML BAG IV SCH (09:30)
[2023-02-23] MEDS: Norethindrone/Eth Est 1.5/30NF TAB PO SCH (09:38)
[2023-02-23 14:55] VITALS: BP 127/83
== END 2023-02-23 17:08 | disposition home or self-care (01) | DRG 710 ==
LOC: EDHOLD 13:29 → ED 13:29 → MED 22:06
PROVIDERS: ADMIT Internal Medicine; ATTEND Internal Medicine

== ENCOUNTER 2023-05-23 12:07 | Inpatient (IN) ==
[2023-05-23] MEDS: NORMOSOL R PH IV ONE (13:11)
[2023-05-23 13:16] LABS: Hematocrit 40.1 % (35-45); Hemoglobin 13.6 g/dL (11.5-14.3); Mean Corpuscular Hemoglobin 29.1 pg (27-33); Mean Corpuscular Volume 85.6 fL (80-97); Mean Platelet Volume 8.5 fL (7.5-11.2); Platelet Count 219 10^3/uL (150-450); Red Blood Count 4.68 10^6/uL (3.63-4.92); Red Cell Distribution Width 13.8 % (12-17); White Blood Count 19.4 10^3/uL (3.8-11.8)
[2023-05-23 13:41] LABS: Activated Partial Thrombo Time 28.3 seconds (26.0-38.0); High Sens Troponin Baseline 5 pg/mL (<15); INR 1.24 (0.83-1.13)
[2023-05-23 13:53] LABS: ALT 27 U/L (7-52); Albumin 3.9 g/dL (3.2-5.2); Albumin/Globulin Ratio 1.3 (1-3); Alkaline Phosphatase 72 U/L (35-149); Anion Gap 11 mmol/L (2-16); Blood Urea Nitrogen 16 mg/dL (6-24); C Reactive Protein 308.79 mg/L (<8.01); CO2 Carbon Dioxide 24 mmol/L (22-32); Calcium 8.8 mg/dL (8.6-10.3); Chloride 97 mmol/L (101-111); Creatinine, Serum 1.06 mg/dL (0.51-0.95); Glucose 123 mg/dL (70-100); Sodium 132 mmol/L (135-145); Total Protein 6.9 g/dL (6.4-8.9); eGFR CKD-EPI 70.3 (>60)
[2023-05-23] MEDS: Piperacillin/Tazobac 3.375 BAG 3.375 GM/100 ML BAG IV ONE (14:07)
[2023-05-23 14:09] LABS: ABS Neutrophils 17.3 10^3/uL (1.5-7.6); ABS Nucleated RBC 0.01 10^3/ul; Lymphocyte % 5.4 %; Nucleated Red Blood Cells % 0.1 %/100WBC (0.0-0.8)
[2023-05-23 15:10] LABS: Urine Appearance Turbid; Urine Bilirubin Negative (Negative); Urine Blood 3+ (Negative); Urine Color Light-Yellow; Urine Glucose Negative (Negative); Urine Ketones Negative (Negative); Urine Nitrite 1+ (Negative); Urine Protein Trace (Negative); Urine Urobilinogen Negative (Negative); Urine pH 6.5 (5.0-8.0)
[2023-05-23 15:13] LABS: Urine Bacteria 3+ /HPF (Absent); Urine Red Blood Cell 3+(>10/hpf) /HPF (0-Trace); Urine Squamous Epithelial Cell Present /HPF (Absent); Urine White Blood Cell 3+(>20/hpf) /HPF (0-Trace)
[2023-05-23] MEDS: Linezolid 600 MG IVPREMIX(*) 600 MG/300 ML BAG IVPB ONE (15:49)
[2023-05-23] MEDS: NORMOSOL-R pH 7.4 1000 mL BAG 1,000 ML IV SCH (17:11)
[2023-05-23] MEDS: cefTRIAXone 2 gm/50 mL D5W 2 GM/50 ML BAG IV SCH ×2 (20:27→21:13)
[2023-05-23] MEDS: Ondansetron 4 mg VIAL 2 MG/ML 2 ml VIAL IV PRN (21:29)
[2023-05-24] MEDS: Linezolid 600 MG IVPREMIX(*) 600 MG/300 ML BAG IVPB SCH (03:37)
[2023-05-24] MEDS ORDERED: Linezolid 600 MG IVPREMIX(*) 600 MG/300 ML BAG IVPB SCH (04:00)
[2023-05-24 06:37] LABS: ABS Lymphocytes 0.7 10^3/uL (1.0-4.8); ABS Monocytes 0.6 10^3/uL (0.0-0.9); Eosinophil % 0.2 %; Hematocrit 31.4 % (35-45); Hemoglobin 10.7 g/dL (11.5-14.3); Lymphocyte % 5.7 %; Mean Corpuscular Hemoglobin 29.1 pg (27-33); Mean Corpuscular Hgb Conc 34.2 g/dL (31-36); Mean Corpuscular Volume 85.1 fL (80-97); Mean Platelet Volume 8.5 fL (7.5-11.2); Platelet Count 165 10^3/uL (150-450); Red Blood Count 3.69 10^6/uL (3.63-4.92); Red Cell Distribution Width 13.6 % (12-17); White Blood Count 11.4 10^3/uL (3.8-11.8)
[2023-05-24 06:51] LABS: Calcium 7.3 mg/dL (8.6-10.3); Creatinine, Serum 0.77 mg/dL (0.51-0.95); eGFR CKD-EPI 103.1 (>60)
[2023-05-24] MEDS: DULoxetine DR 60 mg CAP PO SCH (08:27)
[2023-05-24] MEDS: NF: Norethindrone/Eth Est 1.5/30NF TAB PO SCH (08:27)
[2023-05-24 08:29] LABS: Magnesium 1.9 mg/dL (1.9-2.7)
[2023-05-24] MEDS ORDERED: Potassium Chlor 20 meq TAB.ER PO ONE (14:47)
[2023-05-24] MEDS: Potassium Chlor 20 meq TAB.ER PO ONE ×2 (15:42→17:25)
[2023-05-24] MEDS: Magnesium Sulfate IV 1GM/100ML 1 GM/100 ML BAG IV ONE (15:43)
[2023-05-24] MEDS: Lactated Ringers 1000 ml BAG 1,000 ML IV SCH (15:43)
[2023-05-25] MEDS: Morphine 2 MG/ML SYRINGE IV PRN (02:48)
[2023-05-25 05:06] LABS: ABS Eosinophils 0.2 10^3/uL (0.0-0.5); ABS Lymphocytes 0.8 10^3/uL (1.0-4.8); ABS Monocytes 0.4 10^3/uL (0.0-0.9); ABS Neutrophils 6.5 10^3/uL (1.5-7.6); Eosinophil % 2.2 %; Hematocrit 32.4 % (35-45); Lymphocyte % 10.5 %; Mean Corpuscular Hemoglobin 29.1 pg (27-33); Mean Corpuscular Volume 85.6 fL (80-97); Mean Platelet Volume 8.2 fL (7.5-11.2); Platelet Count 164 10^3/uL (150-450); Red Blood Count 3.79 10^6/uL (3.63-4.92); Red Cell Distribution Width 13.8 % (12-17); White Blood Count 7.9 10^3/uL (3.8-11.8)
[2023-05-25 05:39] LABS: Anion Gap 6 mmol/L (2-16); Blood Urea Nitrogen 10 mg/dL (6-24); CO2 Carbon Dioxide 24 mmol/L (22-32); Calcium 7.8 mg/dL (8.6-10.3); Chloride 107 mmol/L (101-111); Glucose 137 mg/dL (70-100); Potassium 3.9 mmol/L (3.5-5.0); Sodium 137 mmol/L (135-145); eGFR CKD-EPI 98.5 (>60)
[2023-05-25] MEDS: NF: Norethindrone/Eth Est 1.5/30NF TAB PO SCH (09:25)
[2023-05-25 12:25] LABS: HCG Pregnancy < 0.60 mIU/mL
[2023-05-25] MEDS: NS 0.9% 1000 ml BAG 1,000 ML IV SCH ×2 (13:05→20:52)
[2023-05-26 05:07] LABS: ABS Eosinophils 0.1 10^3/uL (0.0-0.5); ABS Lymphocytes 0.5 10^3/uL (1.0-4.8); ABS Monocytes 0.3 10^3/uL (0.0-0.9); Eosinophil % 2.1 %; Hematocrit 32.7 % (35-45); Hemoglobin 11.1 g/dL (11.5-14.3); Lymphocyte % 8.6 %; Mean Corpuscular Volume 85.3 fL (80-97); Mean Platelet Volume 8.3 fL (7.5-11.2); Platelet Count 185 10^3/uL (150-450); Red Blood Count 3.83 10^6/uL (3.63-4.92); Red Cell Distribution Width 13.7 % (12-17); White Blood Count 5.9 10^3/uL (3.8-11.8)
[2023-05-26 05:44] LABS: Calcium 7.4 mg/dL (8.6-10.3); Creatinine, Serum 0.73 mg/dL (0.51-0.95); Potassium 3.5 mmol/L (3.5-5.0); eGFR CKD-EPI 109.9 (>60)
[2023-05-27 11:49] LABS: ABS Eosinophils 0.2 10^3/uL (0.0-0.5); ABS Lymphocytes 1.1 10^3/uL (1.0-4.8); ABS Monocytes 0.4 10^3/uL (0.0-0.9); ABS Neutrophils 3.7 10^3/uL (1.5-7.6); Eosinophil % 3.3 %; Hematocrit 38.8 % (35-45); Lymphocyte % 20.8 %; Mean Corpuscular Hemoglobin 28.5 pg (27-33); Mean Corpuscular Hgb Conc 33.5 g/dL (31-36); Mean Corpuscular Volume 85.1 fL (80-97); Mean Platelet Volume 7.6 fL (7.5-11.2); Platelet Count 265 10^3/uL (150-450); Red Blood Count 4.56 10^6/uL (3.63-4.92); Red Cell Distribution Width 13.5 % (12-17); White Blood Count 5.5 10^3/uL (3.8-11.8)
[2023-05-27 12:14] LABS: Calcium 8.6 mg/dL (8.6-10.3); Creatinine, Serum 0.82 mg/dL (0.51-0.95); Magnesium 1.9 mg/dL (1.9-2.7); Potassium 3.4 mmol/L (3.5-5.0); eGFR CKD-EPI 95.6 (>60)
[2023-05-27] MEDS: Potassium Chlor 20 meq TAB.ER PO ONE (13:41)
[2023-05-27 14:30] VITALS: BP 137/93
== END 2023-05-27 16:25 | disposition home or self-care (01) | DRG 720 ==
LOC: ED 12:07 → EDHOLD 15:21 → SUATTDRO 15:21 → MEDTELE 17:42
PROVIDERS: ADMIT Student in an Organized Health Care Education/Training Program; ATTEND Student in an Organized Health Care Education/Training Program